=== PATIENT | female | born 1990 | race Caucasian/White ===

== ENCOUNTER 2017-01-17 20:39 | Emergency (ER) | payer SELFPAY ==
[~2017-01-17] VITALS: Ht 176.5 cm; Wt 74.0 kg
[2017-01-17 20:58] VITALS: BP 100/63; PULSE 97; RESP 16; TEMP 98.5; O2SAT 100
[2017-01-17] MEDS ORDERED: SODIUM CHLOR 0.9% 1000 ML INJ 1,000 ML IV SCH (21:36)
[2017-01-17] MEDS ORDERED: ONDANSETRON HCL 4 MG/2 ML VIAL IVP ONE (21:45)
[2017-01-17] MEDS ORDERED: SODIUM CHLORIDE 0.9% FLUSH 5 ML FLUSH IVF PRN (21:45)
[2017-01-17] MEDS ORDERED: PANTOPRAZOLE SODIUM 40 MG VIAL IVP ONE (21:45)
--- NOTE | 2017-01-17 21:48 | PD ---
HPI Chief Complaint: Abdominal Pain Time Seen by Provider: 21:36 Travel History International Travel<30 days: No Contact w/Intl Traveler<30days: No Traveled to known affect area: No History of Present Illness HPI 26-year-old female presents to the emergency department by private transportation for complaint of 2 weeks of epigastric pain that has now worsened to involve the entire abdomen as well as radiating into the back and flank area. Patient states she's had ongoing nausea and this evening had an episode of hematemesis times one. No coffee-ground emesis no bilious emesis no melena or hematochezia. Patient denies fever chills. Patient's had no chest pain or shortness of breath. No near-syncope or syncope. Patient states she's taken no medications for her pain and she does not take pain medication and is 6 years "clean" from substance use. Patient rates pain 10 over 10 in intensity. Patient denies dysuria frequency urgency or hematuria. Patient is unable to identify exacerbating or alleviating factors. PFSH Past Medical History Narrative Medical Asthma, CVA, substance use Ab1 tubal ligation alcohol use tobacco use marijuana use; nursing notes reviewed Asthma: Yes Cerebrovascular Accident: Yes Diminished Hearing: No Immunizations Current: Yes ?: Unknown LMP: 12/29/16 : 4 Para: 3 Miscarriage: 1 Tubal Ligation: Yes (2010) Social History Alcohol Use: Yes ("I ONLY DRINK ON OCCASION" STATED 06/08/16) Tobacco Use: Yes (11/18 PPD) Substance Use: Yes ("I SMOKE WEED SOMETIMES, I'VE BEEN CLEAN FROM HEROIN FOR 4.5 YEARS" STATED ) Allergies-Medications (Allergen,Severity, Reaction): Coded Allergies: Aspirin (Verified Allergy, Severe, Throat swelling, 01/17/17) Dimetapp (Verified Allergy, Severe, Swelling, 01/17/17) THROAT SWELLING Penicillin (Verified Allergy, Severe, Throat swelling, 01/17/17) Adhesives (Verified Allergy, Intermediate, Rash, 01/17/17) Latex (Verified Allergy, Intermediate, Itching, 01/17/17) Phenergan (Verified Adverse Reaction, Severe, Vomiting, 01/17/17) Terbutaline (Verified Adverse Reaction, Severe, Increased contractions, 01/17/17) Reported Meds & Prescriptions Reported Meds & Active Scripts Active No Active Prescriptions or Reported Medications Review of Systems Except as stated in HPI: all other systems reviewed are Neg Physical Exam Narrative GENERAL: Well-developed well-nourished female tearful female in no respiratory distress SKIN: Warm and dry. HEAD: Normocephalic. EYES: No scleral icterus. No injection or drainage. NECK: Supple, trachea midline. No JVD or lymphadenopathy. CARDIOVASCULAR: Regular rate and rhythm without murmurs, gallops, or rubs. RESPIRATORY: Breath sounds equal bilaterally. No accessory muscle use. GASTROINTESTINAL: Abdomen soft, diffusely tender, nondistended. MUSCULOSKELETAL: No cyanosis, or edema. BACK: Nontender without obvious deformity. Bilateral CVA tenderness. Data Data Last Documented VS Vital Signs Date Time Temp Pulse Resp B/P Pulse Ox O2 Delivery O2 Flow Rate FiO2 01/17/17 23:39 20 01/17/17 22:20 76 106/70 100 01/17/17 20:58 98.5 Orders Complete Blood Count With Diff (01/17/17 21:36) Comprehensive Metabolic Panel (01/17/17 21:36) Lipase (01/17/17 21:36) Urinalysis - C+S If Indicated (01/17/17 21:36) Ct Abd/Pel W Iv Contrast(Rout) (01/17/17 21:36) Iv Access Insert/Monitor (01/17/17 21:36) Ecg Monitoring (01/17/17 21:36) Oximetry (01/17/17 21:36) Ondansetron Inj (Zofran Inj) (01/17/17 21:45) Pantoprazole Inj (Protonix Inj) (01/17/17 21:45) Sodium Chlor 0.9% 1000 Ml Inj (Ns 1000 M (01/17/17 21:36) Sodium Chloride 0.9% Flush (Ns Flush) (01/17/17 21:45) Ed Urine Pregnancytest Poc (01/17/17 21:36) Urine Culture (01/17/17 22:08) Iohexol 350 Inj (Omnipaque 350 Inj) (01/17/17 23:45) Labs Laboratory Tests Test 01/17/17 01/17/17 22:08 22:20 Urine Collection Type VOIDED Urine Color YELLOW Urine Turbidity CLOUDY Urine pH 5.5 Urine Specific [place] 1.025 Urine Protein 30 mg/dL Urine Glucose (UA) NEG mg/dL Urine Ketones NEG mg/dL Urine Occult Blood SMALL Urine Nitrite POS Urine Bilirubin NEG Urine Leukocyte Esterase SMALL Urine WBC INNUM /hpf Urine WBC Clumps FEW Urine Squamous Epithelial >8 /hpf Cells Urine Bacteria MANY /hpf Microscopic Urinalysis Comment CULTURE INDICATED White Blood Count 8.6 TH/MM3 Red Blood Count 4.16 MIL/MM3 Hemoglobin 13.6 GM/DL Hematocrit 38.7 % Mean Corpuscular Volume 93.1 FL Mean Corpuscular Hemoglobin 32.6 PG Mean Corpuscular Hemoglobin 35.0 % Concent Red Cell Distribution Width 12.1 % Platelet Count 180 TH/MM3 Mean Platelet Volume 8.4 FL Neutrophils (%) (Auto) 65.9 % Lymphocytes (%) (Auto) 25.4 % Monocytes (%) (Auto) 4.6 % Eosinophils (%) (Auto) 0.4 % Basophils (%) (Auto) 3.7 % Neutrophils # (Auto) 5.7 TH/MM3 Lymphocytes # (Auto) 2.2 TH/MM3 Monocytes # (Auto) 0.4 TH/MM3 Eosinophils # (Auto) 0.0 TH/MM3 Basophils # (Auto) 0.3 TH/MM3 CBC Comment DIFF FINAL Differential Comment Sodium Level 139 MEQ/L Potassium Level 3.9 MEQ/L Chloride Level 106 MEQ/L Carbon Dioxide Level 25.5 MEQ/L Anion Gap 8 MEQ/L Blood Urea Nitrogen 13 MG/DL Creatinine 0.69 MG/DL Estimat Glomerular Filtration 102 ML/MIN Rate Random Glucose 85 MG/DL Calcium Level 8.6 MG/DL Total Bilirubin 0.4 MG/DL Aspartate Amino Transf 11 U/L (AST/SGOT) Alanine Aminotransferase 17 U/L (ALT/SGPT) Alkaline Phosphatase 52 U/L Total Protein 7.6 GM/DL Albumin 4.1 GM/DL Lipase 214 U/L [facility] Medical Decision Making Medical Screen Exam Complete: Yes Emergency Medical Condition: Yes Medical Record Reviewed: Yes Interpretation(s) CT A/P : CONCLUSION: Small volume of free pelvic fluid. Otherwise benign unremarkable CT appearance of the abdomen and pelvis. Perry Jackson MD on January 18, 2017 at 0:12 Board Certified Radiologist. This report was verified electronically. CBC & BMP Diagram 01/17/17 22:20 Vital Signs Date Time Temp Pulse Resp B/P Pulse Ox O2 Delivery O2 Flow Rate FiO2 01/17/17 23:39 20 01/17/17 22:20 76 20 106/70 100 01/17/17 20:58 98.5 97 16 100/63 100 Urinalysis positive nitrites WBCs bacteria Differential Diagnosis Abdominal pain, gastritis, peptic ulcer disease, esophagitis, biliary colic, pancreatitis, appendicitis, ectopic , pyelonephritis, UTI Narrative Course Patient presents with flank pain lower abdominal pain and now generalized abdominal pain with nausea vomiting and unable take pain medications because she is fearful of taking anything for pain. No fever or chills. She had one episode of vomiting today with streaks of blood. Patient is been taking any nonsteroidal anti-inflammatory medications. No prior history of peptic ulcer disease. Urinalysis is markedly abnormal consistent with urinary tract infection CT abdomen and pelvis performed and no acute intra-abdominal or pelvic retroperitoneal findings identified. No evidence for pyelonephritis or appendicitis. Patient given first dose of antibiotic in the emergency department along with Pyridium and IV fluid bolus. Patient stable for outpatient management. Diagnosis Primary Impression: UTI (urinary tract infection) Qualified Code: N30.00 - Acute cystitis without hematuria Additional Impression: Gastritis Qualified Code: K29.00 - Acute gastritis, presence of bleeding unspecified, unspecified gastritis type Referrals: Primary Care Physician call for appointment Patient Instructions: General Instructions Additional Instructions: Increase fluid hydration Follow-up with primary care provider Complete course of antibiotic Take Pyridium as prescribed as needed for pain Use Zantac 150 twice daily for 14 days Take acetaminophen/Tylenol as tolerated for fever 100.4F or greater or for minor pain Med/Other Pt SpecificInfo: Prescription(s) given Scripts Phenazopyridine (Pyridium)100 Mg [id number] Mg PO Q8H PRN (DYSURIA) #6 TAB Ref 0 Prov:Natalie Hughes MD 01/18/17 Ciprofloxacin (Cipro)500 Mg [id number] Mg PO BID 10 Days Ref 0 Prov:Natalie Hughes MD 01/18/17 Disposition: 01 DISCHARGE HOME Condition: Stable Natalie Hughes MD Jan 17, 2017 21:48
[2017-01-17 22:17] LABS: BLOOD, URINE SMALL (NEG); GLUCOSE,URINE NEG (NEG); KETONE, URINE NEG (NEG); PH, URINE 5.5 (5.0-8.5)
[2017-01-17 22:19] LABS: NITRITE,URINE POS (NEG)
[2017-01-17 22:20] VITALS: BP 106/70; PULSE 76; RESP 20; O2SAT 100
[2017-01-17 22:25] LABS: METHOD OF COLLECTION VOIDED; URINE COLOR YELLOW (YELLW/STRAW)
[2017-01-17 22:26] LABS: AUTOMATED NEUTROPHIL # 5.7 TH/MM3 (1.8-7.7); BASOPHIL # 0.3 TH/MM3 (0-0.2); BASOPHIL % 3.7 % (0.0-2.0); EOSINOPHIL % 0.4 % (0.0-4.0); HEMATOCRIT 38.7 % (35.0-46.0); HEMO FLAGS DIFF FINAL; LYMPH % 25.4 % (9.0-44.0); LYMPHOCYTE # 2.2 TH/MM3 (1.0-4.8); MEAN CELL VOLUME 93.1 FL (80.0-100.0); MEAN CORPUSCULAR HEMOGLOBIN 32.6 PG (27.0-34.0); MONO % 4.6 % (0.0-8.0); NEUT % 65.9 % (16.0-70.0); PLATELET COUNT 180 TH/MM3 (150-450); RED BLOOD COUNT 4.16 MIL/MM3 (4.00-5.30); RED CELL DISTRIBUTION WIDTH 12.1 % (11.6-17.2); WHITE BLOOD COUNT 8.6 TH/MM3 (4.0-11.0)
[2017-01-17 22:27] LABS: BACTERIA, URINE MANY /hpf; COMMENT (UR) CULTURE INDICATED; CULTURE IF INDICATED CULTURE INDICATED; SQUAMOUS EPITHELIAL CELL URINE >8 /hpf (0-5); WBC, URINE INNUM /hpf (0-5)
[2017-01-17 22:35] LABS: CHLORIDE 106 MEQ/L (98-107); POTASSIUM 3.9 MEQ/L (3.5-5.1); SODIUM (NA) 139 MEQ/L (136-145)
[2017-01-17 22:39] LABS: ANION GAP 8 MEQ/L (5-15); BICARBONATE 25.5 MEQ/L (21.0-32.0); BLOOD UREA NITROGEN 13 MG/DL (7-18)
[2017-01-17 22:42] LABS: ALT (GPT) 17 U/L (10-53); AST (GOT) 11 U/L (15-37); GLOMERULAR FILTRATION RATE 102 ML/MIN (>89)
[2017-01-17 22:43] LABS: TOTAL BILIRUBIN ADULT 0.4 MG/DL (0.2-1.0)
[2017-01-17 22:45] LABS: ALKALINE PHOSPHATASE 52 U/L (45-117)
[2017-01-17] MEDS ORDERED: IOHEXOL 350 MG/ML 10 ML VIAL (for RAD DIAG) IV ONE (23:45)
[2017-01-18] VITALS: BP 116/67
--- NOTE | 2017-01-18 00:16 | RADHPO ---
EXAM DATE/TIME: 01/17/2017 23:45 [facility] COMPARISON: No previous studies available for comparison. INDICATIONS : Epigastric pain for two weeks. IV CONTRAST: 70 cc Omnipaque 350 (iohexol) IV ORAL CONTRAST: No oral contrast ingested. RADIATION DOSE: 10.32 CTDIvol (mGy) MEDICAL HISTORY : None SURGICAL HISTORY : Tubal ligation. ENCOUNTER: Initial ACUITY: 2 weeks PAIN SCALE: 7/10 LOCATION: Abdomen. TECHNIQUE: Volumetric scanning of the abdomen and pelvis was performed. Using automated exposure control and ad justment of the mA and/or kV according to patient size, radiation dose was kept as low as reasonably achievable to obtain optimal diagnostic quality images. FINDINGS: LOWER LUNGS: The visualized lower lungs are clear. LIVER: Homogeneous density without lesion. There is no dilation of the biliary tree. No calcified gallston es. SPLEEN: Normal size without lesion. PANCREAS: Within normal limits. KIDNEYS: Normal in size and shape. There is no mass, stone or hydronephrosis. ADRENAL GLANDS: Within normal limits. VASCULAR: There is no aortic aneurysm. BOWEL/MESENTERY: The stomach, small bowel, and colon demonstrate no acute abnormality. There is no free intraperitone al air or fluid. ABDOMINAL WALL: Within normal limits. RETROPERITONEUM: There is no lymphadenopathy. BLADDER: No wall thickening or mass. REPRODUCTIVE: Small volume of probable physiologic free pelvic fluid. INGUINAL: There is no lymphadenopathy or hernia. MUSCULOSKELETAL: Within normal limits for patient age. CONCLUSION: Small volume of free pelvic fluid. Otherwise benign unremarkable CT appearance of the abdomen and pel vis. Perry Jackson MD on January 18, 2017 at 0:12 Board Certified Radiologist. This report was verified electronically.
[2017-01-18] MEDS ORDERED: CIPR-9 PO (00:26)
[2017-01-18] MEDS ORDERED: PHEN0.4T PO (00:27)
[2017-01-18] MEDS ORDERED: PHENAZOPYRIDINE HCL 100 MG TAB PO ONE (00:30)
[2017-01-18] MEDS ORDERED: LEVOFLOXACIN 500 MG TAB PO ONE (00:30)
== END 2017-01-18 00:46 | disposition home or self-care (01) ==
LOC: PHED 20:39
DX: N30.00 Acute cystitis without hematuria (principal); K29.00 Acute gastritis without bleeding; B96.20 Unspecified Escherichia coli [E. coli] as the cause of diseases classified elsewhere; K92.0 Hematemesis; M54.9 Dorsalgia, unspecified; F17.200 Nicotine dependence, unspecified, uncomplicated; Z87.09 Personal history of other diseases of the respiratory system; Z86.73 Personal history of transient ischemic attack (TIA), and cerebral infarction without residual deficits
CPT/HCPCS: 74177; 80053; 81001; 83690; 84703; 85025; 87077; 87086; 87186; 96374; 96375; 99284; C9113; J2405; J7030; Q9967

== ENCOUNTER 2017-04-14 11:25 | Emergency (ER) | payer SELFPAY ==
[~2017-04-14] VITALS: Ht 175.3 cm; Wt 74.3 kg
[~2017-04-14 11:25] MED LIST: CIPR-9 PO; PHEN0.4T PO
[2017-04-14 11:32] VITALS: BP 102/68; PULSE 87; RESP 15; TEMP 98; O2SAT 99
[2017-04-14] MEDS ORDERED: AMOX500T PO (12:16)
[2017-04-14] MEDS ORDERED: IBUP800T23 PO (12:16)
--- NOTE | 2017-04-14 12:17 | PD ---
HPI Chief Complaint: Oral / Dental Pain or Problem Time Seen by Provider: 11:50 Travel History International Travel<30 days: No Contact w/Intl Traveler<30days: No Traveled to known affect area: No History of Present Illness HPI 26-year-old female with no significant past medical history sensory emergency department for evaluation of right lower jaw/dental pain. She reports 4 days ago she was biting down onto something hard breaking her right back molar. Since then she's had some gum swelling around the tooth and increased pain. Patient denies fever, chills, difficulty opening the mouth or swallowing. PFSH Past Medical History Asthma: Yes Cerebrovascular Accident: Yes Diminished Hearing: No Immunizations Current: Yes Influenza Vaccination: No ?: Not : 4 Para: 3 Miscarriage: 1 Tubal Ligation: Yes (2010) Social History Alcohol Use: Yes (twice a month) Tobacco Use: Yes (11/18 PPD) Substance Use: Yes (PREVIOUS HEROIN ADDICTION) Allergies-Medications (Allergen,Severity, Reaction): Coded Allergies: Aspirin (Verified Allergy, Severe, Throat swelling, 04/14/17) Dimetapp (Verified Allergy, Severe, Swelling, 04/14/17) THROAT SWELLING Penicillin (Verified Allergy, Severe, Throat swelling, 04/14/17) Adhesives (Verified Allergy, Intermediate, Rash, 04/14/17) Latex (Verified Allergy, Intermediate, Itching, 04/14/17) Phenergan (Verified Adverse Reaction, Severe, Vomiting, 04/14/17) Terbutaline (Verified Adverse Reaction, Severe, Increased contractions, ) Reported Meds & Prescriptions Reported Meds & Active Scripts Active No Active Prescriptions or Reported Medications Review of Systems Except as stated in HPI: all other systems reviewed are Neg Physical Exam Narrative GENERAL: Well-nourished, well-developed patient. SKIN: Focused skin assessment warm/dry. HEAD: Normocephalic. EYES: No scleral icterus. No injection or drainage. MOUTH: Dental decay and tooth fracture of tooth #30 with surrounding gum erythema. No swelling of the floor of mouth. NECK: Supple, trachea midline. No JVD or lymphadenopathy. CARDIOVASCULAR: Regular rate and rhythm without murmurs, gallops, or rubs. RESPIRATORY: Breath sounds equal bilaterally. No accessory muscle use. GASTROINTESTINAL: Abdomen soft, non-tender, nondistended. MUSCULOSKELETAL: No cyanosis, or edema. Data Data Last Documented VS Vital Signs Date Time Temp Pulse Resp B/P Pulse Ox O2 Delivery O2 Flow Rate FiO2 04/14/17 11:32 98.0 87 15 102/68 99 MDM Medical Decision Making Medical Screen Exam Complete: Yes Emergency Medical Condition: Yes Medical Record Reviewed: Yes Differential Diagnosis Dental fracture, dental caries, dental abscess Narrative Course 26-year-old female presents emergency department for right lower dental pain after sustaining a tooth fracture 4 days ago. She reports since then she's had increased pain and some gum swelling around the tooth. She denies fevers, chills, difficulty swallowing. On exam patient has widespread dental caries tooth #30 is cracked and decayed with surrounding gum erythema patient will be placed on amoxicillin. Instructed to follow-up with dentist. Patient reports allergy to penicillin but states she can take amoxicillin several times in the past without any previous reaction. Diagnosis Primary Impression: Dental infection Referrals: Dentist Scripts Amoxicillin 500 Mg [id number] Mg PO TID #21 TAB Ref 0 Prov:Crystal Reyes 04/14/17 Ibuprofen 800 Mg [id number] Mg PO TID #21 TAB Ref 0 Prov:Crystal Reyes 04/14/17 Disposition: 01 DISCHARGE HOME Condition: Stable Crystal Reyes April 14, 2017 12:17
[2017-04-15] MEDS ORDERED: CLIN1CAP6 PO (15:00)
== END 2017-04-14 12:29 | disposition home or self-care (01) ==
LOC: PHEFT 11:25
DX: K04.7 Periapical abscess without sinus (principal); K02.9 Dental caries, unspecified; J45.909 Unspecified asthma, uncomplicated; F17.200 Nicotine dependence, unspecified, uncomplicated; Z86.73 Personal history of transient ischemic attack (TIA), and cerebral infarction without residual deficits; Z88.6 Allergy status to analgesic agent; Z88.0 Allergy status to penicillin; Z88.8 Allergy status to other drugs, medicaments and biological substances
CPT/HCPCS: 99283

== ENCOUNTER 2017-04-15 14:15 | Emergency (ER) | payer SELFPAY ==
[~2017-04-15] VITALS: Ht 175.3 cm; Wt 73.0 kg
[~2017-04-15 14:15] MED LIST changes: +AMOX500T PO; -CIPR-9 PO; +IBUP800T23 PO; -PHEN0.4T PO
[2017-04-15 14:22] VITALS: BP 108/71; PULSE 98; RESP 16; TEMP 98.7; O2SAT 100
--- NOTE | 2017-04-15 14:54 | PD ---
HPI Chief Complaint: Oral / Dental Pain or Problem Time Seen by Provider: 14:42 Travel History International Travel<30 days: No Contact w/Intl Traveler<30days: No Traveled to known affect area: No History of Present Illness HPI 26-year-old female presents emergency department for right lower dental pain and swelling. Patient was seen and evaluated in the emergency department by myself yesterday at at that visit she was diagnosed with a minor dental infection caused by a cracked tooth. Patient was put on amoxicillin and Motrin for pain. She presents today reporting that the pain and swelling are worse. She reports subjective fever. She denies difficulty swallowing, nausea, vomiting. PFSH Past Medical History Asthma: Yes Cerebrovascular Accident: Yes Diminished Hearing: No Immunizations Current: Yes ?: Not LMP: 04/14/2017 : 4 Para: 3 Miscarriage: 1 Tubal Ligation: Yes (2010) Social History Alcohol Use: Yes (twice a month) Tobacco Use: Yes (11/18 PPD) Substance Use: Yes (PREVIOUS HEROIN ADDICTION) Allergies-Medications (Allergen,Severity, Reaction): Coded Allergies: Aspirin (Verified Allergy, Severe, ONLY RUDY ASPRIN, 04/15/17) Dimetapp (Verified Allergy, Severe, Swelling, 04/15/17) THROAT SWELLING Penicillin (Verified Allergy, Severe, PT DENIES ALLERGY, 04/15/17) Adhesives (Verified Allergy, Intermediate, Rash, 04/15/17) Latex (Verified Allergy, Intermediate, Itching, 04/15/17) Phenergan (Verified Adverse Reaction, Severe, Vomiting, 04/15/17) Terbutaline (Verified Adverse Reaction, Severe, Increased contractions, ) Reported Meds & Prescriptions Reported Meds & Active Scripts Active Amoxicillin 500 Mg Tab 500 Mg PO TID Ibuprofen 800 Mg Tab 800 Mg PO TID Review of Systems Except as stated in HPI: all other systems reviewed are Neg Physical Exam Narrative GENERAL: Well-nourished, well-developed patient. Crying. SKIN: Focused skin assessment warm/dry. HEAD: Normocephalic. Right lower facial swelling. EYES: No scleral icterus. No injection or drainage. MOUTH: Decayed and cracked tooth #30 with surrounding gum erythema. No fluid collection or abscess present. No oropharynx swelling. No trismus. No swelling of the floor of mouth. NECK: Supple, trachea midline. No JVD or lymphadenopathy. CARDIOVASCULAR: Regular rate and rhythm without murmurs, gallops, or rubs. RESPIRATORY: Breath sounds equal bilaterally. No accessory muscle use. MUSCULOSKELETAL: No cyanosis, or edema. Data Data Last Documented VS Vital Signs Date Time Temp Pulse Resp B/P Pulse Ox O2 Delivery O2 Flow Rate FiO2 04/15/17 14:22 98.7 98 16 108/71 100 MDM Medical Decision Making Medical Screen Exam Complete: Yes Emergency Medical Condition: Yes Differential Diagnosis Dental abscess, dental caries, periodontal disease. Narrative Course 26-year-old female presents emergency department for right lower dental pain she was seen in the emergency department yesterday for the same complaint and put on amoxicillin and Motrin for the pain. She reports the pain and swelling have worsened today and return for evaluation. The swelling on the right side of the face has slightly increased. There is no identifiable abscess lancing in the ER. Patient will be given a shot of Toradol and antibiotics changed to clindamycin. She is instructed follow-up with the dentist. Diagnosis Primary Impression: Dental abscess Additional Instructions: Stop taking the amoxicillin. Start clindamycin. Make an appointment for follow -up with dentist. Scripts Clindamycin 300 Mg [id number] Mg PO Q6H #40 CAP Ref 0 Prov:Crystal Reyes 04/15/17 Disposition: 01 DISCHARGE HOME Condition: Stable Crystal Reyes April 15, 2017 14:54
[2017-04-15] MEDS ORDERED: CLIN1CAP6 PO (15:00)
[2017-04-15] MEDS ORDERED: KETOROLAC TROMETHAMINE 60 MG/2 ML (IM) VIAL IM ONE (15:15)
== END 2017-04-15 15:19 | disposition home or self-care (01) ==
LOC: PHEFT 14:15
DX: K04.7 Periapical abscess without sinus (principal); R50.9 Fever, unspecified; J45.909 Unspecified asthma, uncomplicated; F17.200 Nicotine dependence, unspecified, uncomplicated; Z88.0 Allergy status to penicillin; Z88.6 Allergy status to analgesic agent; Z88.8 Allergy status to other drugs, medicaments and biological substances; Z86.73 Personal history of transient ischemic attack (TIA), and cerebral infarction without residual deficits
CPT/HCPCS: 96372; 99283; J1885

== ENCOUNTER 2017-06-24 16:10 | Emergency (ER) | payer SELFPAY ==
[~2017-06-24] VITALS: Ht 175.3 cm; Wt 72.7 kg
[~2017-06-24 16:10] MED LIST changes: +CLIN1CAP6 PO
[2017-06-24 16:22] VITALS: BP 108/65; PULSE 82; RESP 16; TEMP 99; O2SAT 100
[2017-06-24] MEDS ORDERED: SODIUM CHLOR 0.9% 1000 ML INJ 1,000 ML IV ONE (18:31)
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
[2017-06-24] MEDS ORDERED: SODIUM CHLORIDE 0.9% FLUSH 10 ML FLUSH IVF PRN (18:45)
[2017-06-24] MEDS ORDERED: diphenhydrAMINE HCL 50 MG/ML VIAL IVP ONE (18:45)
[2017-06-24] MEDS ORDERED: METOCLOPRAMIDE HCL 10 MG/2 ML VIAL IVP ONE (18:45)
--- NOTE | 2017-07-07 19:59 | PD ---
Physical Exam Time Seen by Provider: 19:59 Narrative The patient left AMA before I could see her. I did not actually see this patient. The patient left shortly after Dr. Morrissey signed out. The patient was stable and alert and oriented. Data Data Orders Orders Ecg Monitoring (06/24/17 18:31) Iv Access Insert/Monitor (06/24/17 18:31) Oximetry (06/24/17 18:31) Sodium Chloride 0.9% Flush (Ns Flush) (06/24/17 18:45) Diphenhydramine Inj (Benadryl Inj) (06/24/17 18:45) Metoclopramide Inj (Reglan Inj) (06/24/17 18:45) Sodium Chlor 0.9% 1000 Ml Inj (Ns 1000 M (06/24/17 18:31) Ed Urine Pregnancytest Poc (06/24/17 18:31) MDM Diagnosis Primary Impression: Headache Patient Instructions: General Instructions Departure Forms: Tests/Procedures Scripts No Active Prescriptions or Reported Meds Disposition: 07 AGAINST MEDICAL ADVICE Condition: Stable Reji Jade MD Jul 07, 2017 19:59
== END 2017-06-24 19:15 | disposition left against medical advice (07) ==
LOC: PHED 16:10
DX: R51 Headache (principal); R11.2 Nausea with vomiting, unspecified; J45.909 Unspecified asthma, uncomplicated; Z86.73 Personal history of transient ischemic attack (TIA), and cerebral infarction without residual deficits; F17.210 Nicotine dependence, cigarettes, uncomplicated
CPT/HCPCS: 99281

== ENCOUNTER 2017-07-09 13:45 | Emergency (ER) | payer SELFPAY ==
[~2017-07-09] VITALS: Ht 175.3 cm; Wt 71.6 kg
[2017-07-09 13:55] VITALS: BP 100/60; PULSE 100; RESP 16; TEMP 99; O2SAT 98
[2017-07-09 14:35] VITALS: BP 100/60; PULSE 100; RESP 16; TEMP 99; O2SAT 98
[2017-07-09 14:57] LABS: BLOOD, URINE SMALL (NEG); GLUCOSE,URINE NEG (NEG); KETONE, URINE NEG (NEG); NITRITE,URINE NEG (NEG); PH, URINE 5.5 (5.0-8.5)
[2017-07-09 15:00] LABS: METHOD OF COLLECTION CLEAN CATCH; URINE COLOR YELLOW (YELLW/STRAW)
[2017-07-09 15:01] LABS: COMMENT (UR) CULT NOT INDICATED; CULTURE IF INDICATED CULT NOT INDICATED; MUCUS URINE FEW /lpf (OCC); RBC, URINE 0-3 /hpf (0-3); SQUAMOUS EPITHELIAL CELL URINE > 8 /hpf (0-5); WBC, URINE 0-2 /hpf (0-5)
--- NOTE | 2017-07-09 15:14 | PD ---
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 Generalized abdominal pain has been present today. It's most noticeable in left upper quadrant. 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 She has had no fever. She reports an [id number] ear test was faintly positive. She also reports left upper gingival swelling which she believes might be an abscess. [facility] Past Medical History Anemia: Yes Asthma: Yes Cerebrovascular Accident: Yes Diminished Hearing: No Gastrointestinal Disorders: Yes (GASTRITIS) GERD: Yes Immunizations Current: Yes Influenza Vaccination: No ?: Unknown LMP: 06/26/17 : 4 Para: 3 Miscarriage: 1 Tubal Ligation: Yes (2010) Past Surgical History Surgical History: No Previous Surgery Social History Alcohol Use: Yes Tobacco Use: Yes (11/18 PPD) Substance Use: Yes (PREVIOUS HEROIN ADDICTION) Allergies-Medications (Allergen,Severity, Reaction): Coded Allergies: aspirin (Unverified Allergy, Severe, ONLY RUDY ASPRIN, 07/09/17) brompheniramine (Unverified Allergy, Severe, Swelling, 07/09/17) THROAT SWELLING penicillin G (Unverified Allergy, Severe, PT DENIES ALLERGY, 07/09/17) phenylpropanolamine (Unverified Allergy, Severe, Swelling, 07/09/17) THROAT SWELLING adhesive (Unverified Allergy, Intermediate, Rash, 07/09/17) latex (Unverified Allergy, Intermediate, Itching, 07/09/17) promethazine (Unverified Adverse Reaction, Severe, Vomiting, 07/09/17) terbutaline (Unverified Adverse Reaction, Severe, Increased contractions, 07/09/17) Reported Meds & Prescriptions Reported Meds & Active Scripts Active No Active Prescriptions or Reported Medications Review of Systems Except as stated in HPI: all other systems reviewed are Neg Physical Exam Narrative GENERAL: 26-year-old female pleasant well-nourished well-developed acute distress SKIN: Warm and dry. HEAD: Atraumatic. Normocephalic. EYES: Pupils equal and round. No scleral icterus. No injection or drainage. ENT: No nasal bleeding or discharge. Mucous membranes pink and moist. NECK: Trachea midline. No JVD. CARDIOVASCULAR: Regular rate and rhythm. RESPIRATORY: No accessory muscle use. Clear to auscultation. Breath sounds equal bilaterally. GASTROINTESTINAL: Abdomen soft, non-tender, nondistended. Hepatic and splenic margins not palpable. MUSCULOSKELETAL: Extremities without clubbing, cyanosis, or edema. No obvious deformities. NEUROLOGICAL: Awake and alert. No obvious cranial nerve deficits. Motor grossly within normal limits. Five out of 5 muscle strength in the arms and legs. Normal speech. PSYCHIATRIC: Appropriate mood and affect; insight and judgment normal. Data Data Last Documented VS Vital Signs Date Time Temp Pulse Resp B/P (MAP) Pulse Ox O2 Delivery O2 Flow Rate FiO2 07/09/17 15:36 07/09/17 14:35 99.0 100 16 98 Orders Orders Beta Hcg (Quant/Titer) (07/09/17 14:24) Complete Rh (07/09/17 14:24) Urinalysis - C+S If Indicated (07/09/17 14:24) Ed Urine Pregnancytest Poc (07/09/17 14:24) Labs Laboratory Tests Test 07/09/17 14:51 Urine Collection Type CLEAN CATCH Urine Color YELLOW Urine Turbidity CLEAR Urine pH 5.5 Urine Specific [place] 1.020 Urine Protein NEG mg/dL Urine Glucose (UA) NEG mg/dL Urine Ketones NEG mg/dL Urine Occult Blood SMALL Urine Nitrite NEG Urine Bilirubin NEG Urine Leukocyte Esterase NEG Urine RBC 0-3 /hpf Urine WBC 0-2 /hpf Urine Squamous Epithelial Cells > 8 /hpf Urine Mucus FEW /lpf Microscopic Urinalysis Comment CULT NOT INDICATED Urine Collection Time 14:51 Human Chorionic Gonadotropin, Quant LESS THAN 1 MIU/ML [facility] Medical Decision Making Medical Screen Exam Complete: Yes Emergency Medical Condition: Yes Medical Record Reviewed: Yes Differential Diagnosis IUP, UTI, ectopic , ov torsion, appendicitis, TOA, cervicitis, BV, Trichomoniasis, ov cyst, hernia, mittelschmerz, pain from menstruation Narrative Course Point of care : No Beta hCG less than 1 Patient is suitable for discharge. Follow-up with dentist discussed. The lesion is not appear to be an abscess or infectious process. We talked about neoplastic lesions in the patient verbalized understanding. Diagnosis Primary Impression: Vaginal bleeding Additional Impression: Gum lesion Referrals: Dentist 2 days Additional Instructions: You have a choice when it comes to health care, and we are glad that you chose [facility]. Hopefully, we have met your expectations on today's visit. You are welcome to return to [facility] at any time, as we are committed to meeting the health care needs of our community. Med/Other Pt SpecificInfo: No Change to Meds Scripts No Active Prescriptions or Reported Meds Disposition: 01 DISCHARGE HOME Condition: Loki Fernandez MD Jul 09, 2017 15:14
[2017-07-09 15:17] LABS: BETA HCG QUANT LESS THAN 1 MIU/ML (0-5)
== END 2017-07-09 15:37 | disposition home or self-care (01) ==
LOC: PHED 13:45
DX: N93.9 Abnormal uterine and vaginal bleeding, unspecified (principal); K13.70 Unspecified lesions of oral mucosa; Z86.73 Personal history of transient ischemic attack (TIA), and cerebral infarction without residual deficits; J45.909 Unspecified asthma, uncomplicated; K21.9 Gastro-esophageal reflux disease without esophagitis; Z88.0 Allergy status to penicillin; F17.210 Nicotine dependence, cigarettes, uncomplicated; Z87.19 Personal history of other diseases of the digestive system
CPT/HCPCS: 81001; 84702; 84703; 86901; 99283

== ENCOUNTER 2017-08-30 14:52 | Emergency (ER) | payer SELFPAY ==
[~2017-08-30] VITALS: Ht 175.3 cm; Wt 72.1 kg
[2017-08-30 15:08] VITALS: BP 100/51; PULSE 75; RESP 18; TEMP 99; O2SAT 99
[2017-08-30] MEDS ORDERED: SODIUM CHLORIDE 0.9% FLUSH 10 ML FLUSH IVF PRN (16:30)
[2017-08-30] MEDS ORDERED: cefTRIAXone INJ 2,000 MG in SODIUM CHLORIDE 0.9% INJ 100 ML IV ONE (16:30)
[2017-08-30] MEDS ORDERED: AZITHROMYCIN INJ 500 MG in SODIUM CHLOR 0.9% 250 ML INJ 250 ML IV ONE (16:30)
--- NOTE | 2017-08-30 16:37 | PD ---
HPI . Chest cold Chief Complaint: Cold / Flu Symptoms Time Seen by Provider: 16:11 Travel History International Travel<30 days: No Contact w/Intl Traveler<30days: No Traveled to known affect area: No History of Present Illness HPI Patient presents with a chief complaint of a chest cold. She states that her symptoms all started a couple weeks ago with fevers and chills associated with nausea and vomiting. Most of those sorts of symptoms have subsided but she now has a persistent cough which is productive of purulent sputum. She states that she is coughing so much that her chest and back are sore. She continues to run occasional fevers. She feels short of breath. No noted modifying factors. She rates the pain in her chest 06/26. [facility] Past Medical History Anemia: Yes Asthma: Yes Cerebrovascular Accident: Yes Diminished Hearing: No Gastrointestinal Disorders: Yes (GASTRITIS) GERD: Yes Immunizations Current: Yes Tetanus Vaccination: < 5 Years Influenza Vaccination: Yes ?: Not LMP: 08/24/17 : 4 Para: 3 Miscarriage: 1 Tubal Ligation: Yes (2010) Social History Alcohol Use: Yes Tobacco Use: Yes (11/18 PPD) Substance Use: Yes (PREVIOUS HEROIN ADDICTION) Allergies-Medications (Allergen,Severity, Reaction): Coded Allergies: aspirin (Unverified Allergy, Severe, ONLY RUDY ASPRIN, 08/30/17) brompheniramine (Unverified Allergy, Severe, Swelling, 08/30/17) THROAT SWELLING penicillin G (Unverified Allergy, Severe, PT DENIES ALLERGY, 08/30/17) phenylpropanolamine (Unverified Allergy, Severe, Swelling, 08/30/17) THROAT SWELLING adhesive (Unverified Allergy, Intermediate, Rash, 08/30/17) latex (Unverified Allergy, Intermediate, Itching, 08/30/17) promethazine (Unverified Adverse Reaction, Severe, Vomiting, 08/30/17) terbutaline (Unverified Adverse Reaction, Severe, Increased contractions, 08/30/17) Reported Meds & Prescriptions Reported Meds & Active Scripts Active No Active Prescriptions or Reported Medications Review of Systems Except as stated in HPI: all other systems reviewed are Neg General / Constitutional: Positive: Fever, Chills HENT: No: Sore Throat, Congestion Cardiovascular: Positive: Chest Pain or Discomfort Respiratory: Positive: Cough, Shortness of Breath Gastrointestinal: No: Nausea, Vomiting, Diarrhea Genitourinary: No: Urgency, Frequency, Dysuria Physical Exam Narrative GENERAL: The patient is awake and alert and does not appear to be in any acute distress. SKIN: warm/dry. No rash. HEAD: Normocephalic. Atraumatic. EYES: Pupils equal and round. No scleral icterus. No injection or drainage. ENT: No nasal bleeding or discharge. Mucous membranes pink and moist. NECK: Trachea midline. Full range of motion without pain.. CARDIOVASCULAR: Regular rate and rhythm. Heart sounds are normal. RESPIRATORY: No accessory muscle use. I am not hearing breath sounds on the left. The right sounds clear. GASTROINTESTINAL: Abdomen soft. Nontender. Bowel sounds present. Nondistended. MUSCULOSKELETAL: No obvious deformities. NEUROLOGICAL: Awake and alert. No obvious cranial nerve deficits. Motor grossly within normal limits. Normal speech. PSYCHIATRIC: Appropriate mood and affect; insight and judgment normal. Data Data Last Documented VS Vital Signs Date Time Temp Pulse Resp B/P (MAP) Pulse Ox O2 Delivery O2 Flow Rate FiO2 08/30/17 17:49 72 16 93/58 (70) 97 Room Air 08/30/17 15:08 99.0 Orders Orders Basic Metabolic Panel (Bmp) (08/30/17 16:30) Complete Blood Count With Diff (08/30/17 16:30) Lactic Acid Sepsis Protocol (08/30/17 16:30) Blood Culture (08/30/17 16:30) Chest, Single Ap (08/30/17 16:30) Iv Access Insert/Monitor (08/30/17 16:30) Sodium Chloride 0.9% Flush (Ns Flush) (08/30/17 16:30) Ceftriaxone Inj (Rocephin Inj) (08/30/17 16:30) Azithromycin Inj (Zithromax Inj) (08/30/17 16:30) Labs Laboratory Tests Test 08/30/17 17:00 White Blood Count 5.6 TH/MM3 Red Blood Count 4.11 MIL/MM3 Hemoglobin 13.3 GM/DL Hematocrit 38.7 % Mean Corpuscular Volume 94.0 FL Mean Corpuscular Hemoglobin 32.3 PG Mean Corpuscular Hemoglobin Concent 34.4 % Red Cell Distribution Width 12.2 % Platelet Count 205 TH/MM3 Mean Platelet Volume 8.1 FL Neutrophils (%) (Auto) 52.7 % Lymphocytes (%) (Auto) 39.4 % Monocytes (%) (Auto) 6.3 % Eosinophils (%) (Auto) 1.5 % Basophils (%) (Auto) 0.1 % Neutrophils # (Auto) 2.9 TH/MM3 Lymphocytes # (Auto) 2.2 TH/MM3 Monocytes # (Auto) 0.4 TH/MM3 Eosinophils # (Auto) 0.1 TH/MM3 Basophils # (Auto) 0.0 TH/MM3 CBC Comment DIFF FINAL Differential Comment Blood Urea Nitrogen 13 MG/DL Creatinine 0.67 MG/DL Random Glucose 80 MG/DL Calcium Level 8.7 MG/DL Sodium Level 139 MEQ/L Potassium Level 3.6 MEQ/L Chloride Level 104 MEQ/L Carbon Dioxide Level 29.4 MEQ/L Anion Gap 6 MEQ/L Estimat Glomerular Filtration Rate 105 ML/MIN Lactic Acid Level 0.7 mmol/L MDM Medical Decision Making Medical Screen Exam Complete: Yes Emergency Medical Condition: Yes Differential Diagnosis Differential diagnosis includes but is not limited to viral respiratory illness , bronchitis, pneumonia, allergies, CHF, asthma/COPD. Narrative Course This patient presents with a cough productive of sputum. She is having fevers and chills. She has been sick for about 2 weeks. CXR>>No acute disease. CBC & BMP Diagram 08/30/17 17:00 Calcium Level 8.7. Lactic acid is 0.7. Her workup is totally negative. She probably has a viral bronchitis that is slow to clear. I will discharge her to home on a prednisone taper. Diagnosis Primary Impression: Bronchitis Patient Instructions: Acute Bronchitis (DC), General Instructions Med/Other Pt SpecificInfo: Prescription(s) given Scripts Hydrocodone-Chlorpheniramine 12 HR Liq (Tussionex Pennkinetic Ext 12 HR Liq) 10- 8 Mg/5 Ml Susp 5 ML PO Q12H Y for COUGH AND/OR COLD SYMPTOMS, #60 ML 0 Refills Prov: Priya Bailey MD 08/30/17 Ondansetron (Zofran) 4 Mg Tab 4 MG PO Q6HR Y for NAUSEA OR VOMITING, #10 TAB 0 Refills Prov: Priya Bailey MD 08/30/17 Prednisone (48) 10 mg tab Dose Pack (Prednisone (48) 10 mg tab Dose Pack) 10 Mg Dspk 10 MG PO DIRECTED for Inflammation, #1 DSPK 0 Refills Prov: Priya Bailey MD 08/30/17 Disposition: 01 DISCHARGE HOME Condition: Stable Priya Bailey MD Aug 30, 2017 16:37
--- NOTE | 2017-08-30 17:20 | RADRPT ---
EXAM DATE/TIME: 08/30/2017 16:48 [facility] COMPARISON: No previous studies available for comparison. INDICATIONS : Cough, and congestion. MEDICAL HISTORY : None. SURGICAL HISTORY : None. ENCOUNTER: Initial ACUITY: 1 week PAIN SCORE: 2/10 LOCATION: Bilateral chest FINDINGS: A single view of the chest demonstrates the lungs to be symmetrically aerated without evidence of mas s, infiltrate or effusion. The cardiomediastinal contours are unremarkable. Osseous structures are intact. CONCLUSION: No acute disease. Magdaleno Hawkins MD on August 30, 2017 at 17:19 Board Certified Radiologist. This report was verified electronically.
[2017-08-30 17:29] LABS: AUTOMATED NEUTROPHIL # 2.9 TH/MM3 (1.8-7.7); BASOPHIL % 0.1 % (0.0-2.0); EOSINOPHIL # 0.1 TH/MM3 (0-0.4); EOSINOPHIL % 1.5 % (0.0-4.0); HEMATOCRIT 38.7 % (35.0-46.0); HEMO FLAGS DIFF FINAL; LYMPH % 39.4 % (9.0-44.0); LYMPHOCYTE # 2.2 TH/MM3 (1.0-4.8); MEAN CORPUSCULAR HEMOGLOBIN 32.3 PG (27.0-34.0); MEAN CORPUSCULAR HGB CONC 34.4 % (32.0-36.0); MONO % 6.3 % (0.0-8.0); NEUT % 52.7 % (16.0-70.0); PLATELET COUNT 205 TH/MM3 (150-450); RED BLOOD COUNT 4.11 MIL/MM3 (4.00-5.30); RED CELL DISTRIBUTION WIDTH 12.2 % (11.6-17.2); WHITE BLOOD COUNT 5.6 TH/MM3 (4.0-11.0)
[2017-08-30 17:37] LABS: POTASSIUM 3.6 MEQ/L (3.5-5.1)
[2017-08-30 17:39] LABS: BICARBONATE 29.4 MEQ/L (21.0-32.0)
[2017-08-30 17:49] VITALS: BP 93/58; PULSE 72; RESP 16; O2SAT 97
[2017-08-30] MEDS ORDERED: PRED10PA2 PO (17:58)
[2017-08-30] MEDS ORDERED: TUSSSUS2 PO (17:58)
[2017-08-30] MEDS ORDERED: ZOFR4TAB PO (17:58)
[2017-08-30] MEDS ORDERED: ONDANSETRON ODT 4 MG TAB PO ONE (18:00)
[2017-08-30 19:22] VITALS: BP 90/52
== END 2017-08-30 19:25 | disposition home or self-care (01) ==
LOC: PHED 14:52
DX: J40 Bronchitis, not specified as acute or chronic (principal); F17.210 Nicotine dependence, cigarettes, uncomplicated
CPT/HCPCS: 71010; 80048; 83605; 85025; 87040; 96365; 96367; 99284; J0456; J0696; J7050

== ENCOUNTER 2017-09-09 10:26 | Emergency (ER) | payer SELFPAY ==
[~2017-09-09] VITALS: Ht 175.3 cm; Wt 72.5 kg
[~2017-09-09 10:26] MED LIST changes: -AMOX500T PO; -CLIN1CAP6 PO; -IBUP800T23 PO; +PRED10PA2 PO; +TUSSSUS2 PO; +ZOFR4TAB PO
[2017-09-09 10:51] VITALS: BP 96/55; PULSE 96; RESP 18; TEMP 98.7; O2SAT 99
[2017-09-09] MEDS ORDERED: SODIUM CHLOR 0.9% 1000 ML INJ 1,000 ML IV SCH (11:02)
[2017-09-09 11:05] VITALS: O2SAT 98
--- NOTE | 2017-09-09 11:09 | PD ---
HPI Chief Complaint: Abdominal Pain Time Seen by Provider: 10:56 Travel History International Travel<30 days: No Contact w/Intl Traveler<30days: No Traveled to known affect area: No History of Present Illness HPI The patient is a 27-year-old female who presents emergency department for abdominal pain. The patient developed abdominal pain is located in the right lower quadrant and right flank last night. The pain has progressed overnight and she subsequently developed nausea and vomiting with anorexia. The patient denies any diarrhea, last normal bowel movement was yesterday. The patient does have a history of tubal ligation, denies any known history of pancreatitis, biliary colic, or gallstones. She does have a history of nephrolithiasis, however, states he symptoms are significantly different. She also notes fevers at home as high as 101.8 orally. The patient's last menstrual cycle was August 18, 2017, she denies . The patient denies any vaginal bleeding or vaginal discharge. The patient denies any dysuria, frequency, urgency, or hematuria. The patient states she is not currently sexually active. Symptoms are moderate, there are no alleviating or exacerbating factors. PFSH Past Medical History Anemia: Yes Asthma: Yes Cerebrovascular Accident: Yes Diminished Hearing: No Gastrointestinal Disorders: Yes (GASTRITIS) GERD: Yes Immunizations Current: Yes ?: Not : 4 Para: 3 Miscarriage: 1 Tubal Ligation: Yes (2010) Past Surgical History Narrative Surgical Tubal ligation Social History Alcohol Use: Yes Tobacco Use: Yes (11/18 PPD) Substance Use: Yes (PREVIOUS HEROIN ADDICTION) Allergies-Medications (Allergen,Severity, Reaction): Coded Allergies: aspirin (Unverified Allergy, Severe, ONLY RUDY ASPRIN, 09/09/17) brompheniramine (Unverified Allergy, Severe, Swelling, 09/09/17) THROAT SWELLING penicillin G (Unverified Allergy, Severe, PT DENIES ALLERGY, 09/09/17) phenylpropanolamine (Unverified Allergy, Severe, Swelling, 09/09/17) THROAT SWELLING adhesive (Unverified Allergy, Intermediate, Rash, 09/09/17) latex (Unverified Allergy, Intermediate, Itching, 09/09/17) promethazine (Unverified Adverse Reaction, Severe, Vomiting, 09/09/17) terbutaline (Unverified Adverse Reaction, Severe, Increased contractions, 09/09/17) Reported Meds & Prescriptions Reported Meds & Active Scripts Active No Active Prescriptions or Reported Medications Review of Systems Except as stated in HPI: all other systems reviewed are Neg General / Constitutional: Positive: Fever Cardiovascular: No: Chest Pain or Discomfort Respiratory: No: Shortness of Breath Gastrointestinal: Positive: Nausea, Vomiting, Abdominal Pain, No: Diarrhea, Constipation Genitourinary: No: Urgency, Frequency, Dysuria, Discharge, Vaginal Bleeding Physical Exam Narrative GENERAL: Awake, alert, pleasant 27-year-old female who appears her stated age and is in no acute respiratory distress. SKIN: Focused skin assessment warm/dry. Tattoos noted. HEAD: Atraumatic. Normocephalic. EYES: No injection or drainage. ENT: No nasal bleeding or discharge. Mucous membranes pink and moist. NECK: Trachea midline. No JVD. CARDIOVASCULAR: Regular rate and rhythm. No murmur appreciated. RESPIRATORY: No accessory muscle use. Clear to auscultation. Breath sounds equal bilaterally. GASTROINTESTINAL: Abdomen soft, tender to palpation right lower quadrant and mid right flank. Back: No CVA tenderness. MUSCULOSKELETAL: No obvious deformities. No clubbing. No cyanosis. No edema. NEUROLOGICAL: Awake and alert. No obvious cranial nerve deficits. Motor grossly within normal limits. Normal speech. PSYCHIATRIC: Appropriate mood and affect; insight and judgment normal. Data Data Last Documented VS Vital Signs Date Time Temp Pulse Resp B/P (MAP) Pulse Ox O2 Delivery O2 Flow Rate FiO2 09/09/17 14:50 70 16 90/54 (66) 98 Room Air 09/09/17 10:51 98.7 Orders Orders Complete Blood Count With Diff (09/09/17 11:02) Comprehensive Metabolic Panel (09/09/17 11:02) Lipase (09/09/17 11:02) Urinalysis - C+S If Indicated (09/09/17 11:02) Ct Abd/Pel W/O Iv Contrast (09/09/17 11:02) Iv Access Insert/Monitor (09/09/17 11:02) Ecg Monitoring (09/09/17 11:02) Oximetry (09/09/17 11:02) Morphine Inj (Morphine Inj) (09/09/17 11:15) Ondansetron Inj (Zofran Inj) (09/09/17 11:15) Sodium Chlor 0.9% 1000 Ml Inj (Ns 1000 M (09/09/17 11:02) Sodium Chloride 0.9% Flush (Ns Flush) (09/09/17 11:15) Ketorolac Inj (Toradol Inj) (09/09/17 11:15) Ed Urine Pregnancytest Poc (09/09/17 11:02) Gc And Chlamydia Pcr (09/09/17 12:43) Wet Prep Profile (09/09/17 12:43) Morphine Inj (Morphine Inj) (09/09/17 13:15) Us Pelvis Comp W Dop Transvag (09/09/17 ) Labs Laboratory Tests Test 09/09/17 11:15 09/09/17 11:20 09/09/17 13:03 White Blood Count 9.2 TH/MM3 Red Blood Count 4.71 MIL/MM3 Hemoglobin 15.0 GM/DL Hematocrit 44.1 % Mean Corpuscular Volume 93.7 FL Mean Corpuscular Hemoglobin 31.9 PG Mean Corpuscular Hemoglobin Concent 34.0 % Red Cell Distribution Width 12.3 % Platelet Count 192 TH/MM3 Mean Platelet Volume 8.3 FL Neutrophils (%) (Auto) 71.5 % Lymphocytes (%) (Auto) 18.8 % Monocytes (%) (Auto) 4.8 % Eosinophils (%) (Auto) 0.5 % Basophils (%) (Auto) 4.4 % Neutrophils # (Auto) 6.7 TH/MM3 Lymphocytes # (Auto) 1.7 TH/MM3 Monocytes # (Auto) 0.4 TH/MM3 Eosinophils # (Auto) 0.0 TH/MM3 Basophils # (Auto) 0.4 TH/MM3 CBC Comment DIFF FINAL Differential Comment Blood Urea Nitrogen 12 MG/DL Creatinine 0.55 MG/DL Random Glucose 80 MG/DL Total Protein 7.8 GM/DL Albumin 4.2 GM/DL Calcium Level 8.9 MG/DL Alkaline Phosphatase 56 U/L Aspartate Amino Transf (AST/SGOT) 13 U/L Alanine Aminotransferase (ALT/SGPT) 16 U/L Total Bilirubin 0.5 MG/DL Sodium Level 137 MEQ/L Potassium Level 4.0 MEQ/L Chloride Level 106 MEQ/L Carbon Dioxide Level 23.7 MEQ/L Anion Gap 7 MEQ/L Estimat Glomerular Filtration Rate 132 ML/MIN Lipase 171 U/L Urine Collection Type CLEAN CATCH Urine Color STRAW Urine Turbidity CLEAR Urine pH 7.0 Urine Specific [place] 1.011 Urine Protein NEG mg/dL Urine Glucose (UA) NEG mg/dL Urine Ketones NEG mg/dL Urine Occult Blood NEG Urine Nitrite NEG Urine Bilirubin NEG Urine Leukocyte Esterase TRACE Urine WBC 0-2 /hpf Urine Squamous Epithelial Cells 0-5 /hpf Urine Amorphous Sediment FEW Microscopic Urinalysis Comment CULT NOT INDICATED Urine Collection Time 1120 Clue Cells (Wet Prep) PRESENT Vaginal Trichomonas (Wet Prep) NONE SEEN Vaginal Yeast (Wet Prep) NONE SEEN MDM Medical Decision Making Medical Screen Exam Complete: Yes Emergency Medical Condition: Yes Medical Record Reviewed: Yes Interpretation(s) Laboratory Tests Test 09/09/17 11:15 09/09/17 11:20 White Blood Count 9.2 TH/MM3 Red Blood Count 4.71 MIL/MM3 Hemoglobin 15.0 GM/DL Hematocrit 44.1 % Mean Corpuscular Volume 93.7 FL Mean Corpuscular Hemoglobin 31.9 PG Mean Corpuscular Hemoglobin Concent 34.0 % Red Cell Distribution Width 12.3 % Platelet Count 192 TH/MM3 Mean Platelet Volume 8.3 FL Neutrophils (%) (Auto) 71.5 % Lymphocytes (%) (Auto) 18.8 % Monocytes (%) (Auto) 4.8 % Eosinophils (%) (Auto) 0.5 % Basophils (%) (Auto) 4.4 % Neutrophils # (Auto) 6.7 TH/MM3 Lymphocytes # (Auto) 1.7 TH/MM3 Monocytes # (Auto) 0.4 TH/MM3 Eosinophils # (Auto) 0.0 TH/MM3 Basophils # (Auto) 0.4 TH/MM3 CBC Comment DIFF FINAL Differential Comment Blood Urea Nitrogen 12 MG/DL Creatinine 0.55 MG/DL Random Glucose 80 MG/DL Total Protein 7.8 GM/DL Albumin 4.2 GM/DL Calcium Level 8.9 MG/DL Alkaline Phosphatase 56 U/L Aspartate Amino Transf (AST/SGOT) 13 U/L Alanine Aminotransferase (ALT/SGPT) 16 U/L Total Bilirubin 0.5 MG/DL Sodium Level 137 MEQ/L Potassium Level 4.0 MEQ/L Chloride Level 106 MEQ/L Carbon Dioxide Level 23.7 MEQ/L Anion Gap 7 MEQ/L Estimat Glomerular Filtration Rate 132 ML/MIN Lipase 171 U/L Urine Collection Type CLEAN CATCH Urine Color STRAW Urine Turbidity CLEAR Urine pH 7.0 Urine Specific [place] 1.011 Urine Protein NEG mg/dL Urine Glucose (UA) NEG mg/dL Urine Ketones NEG mg/dL Urine Occult Blood NEG Urine Nitrite NEG Urine Bilirubin NEG Urine Leukocyte Esterase TRACE Urine WBC 0-2 /hpf Urine Squamous Epithelial Cells 0-5 /hpf Urine Amorphous Sediment FEW Microscopic Urinalysis Comment CULT NOT INDICATED Urine Collection Time 1120 Last Impressions Abdomen/Pelvis CT 09/09/17 1102 Signed Impressions: Service Date/Time: Saturday, September 09, 2017 11:43 - CONCLUSION: 1. Right adnexal cystic mass measuring 3.9 x 3.0 cm. Free fluid is noted within the cul-de-sac and right adnexal region. Pelvic ultrasound may be helpful for further evaluation of this patient if clinically indicated. 2. No CT evidence of acute appendicitis. Taras Isaacs MD Abdomen/Pelvis/Transvag US 09/09/17 0000 Signed Impressions: Service Date/Time: Saturday, September 09, 2017 13:52 - CONCLUSION: 1. Hypodense area on the prior pelvic CT corresponds to a probable 3.4 x 3.5 x 3.8 cm hemorrhagic type cyst in the right ovary. 2. Elongated cystic area in the uterine fundus measuring 2.9 x 0.7 x 1.1 cm could represent a blighted ovum or in progress. Negative test. 3. Small amount of free fluid in the cul-de-sac. Denis Lopes MD Differential Diagnosis Differential diagnosis includes appendicitis, atypical cholecystitis, cholelithiasis, pancreatitis, ovarian cyst, PID, cervicitis, pyelonephritis, UTI , ectopic . Narrative Course IV was established, labs are drawn and sent, and the patient was placed on cardiac telemetry monitoring and continuous pulse oximetry monitoring. The patient was administered morphine, Toradol, Zofran, and IV fluids. Noncontrast CT of the abdomen and pelvis was ordered to evaluate for possible appendicitis. CBC, CMP, and UA are unremarkable. Pelvic exam was performed, wet prep and gonorrhea/chlamydia were sent to lab. The patient was administered a second dose of pain medications. CT reveals a cystic adnexal mass the right lower quadrant, beta is negative, recommends ultrasound. Therefore, ultrasound was ordered to evaluate the adnexal cystic mass. Ultrasound reveals a right hemorrhagic ovarian cyst. Wet prep is positive for bacterial vaginosis. The patient will be treated with Flagyl, [place], and ibuprofen. She will be provided a work excuse for today and tomorrow. She will be provided a copy of her CT results, ultrasound results, and lab results at discharge. Diagnosis Primary Impression: Hemorrhagic cyst of right ovary Additional Impression: Bacterial vaginosis Patient Instructions: General Instructions Additional Instructions: Medications as directed. Please provide the patient a copy of her lab results, CT results, and ultrasound results at discharge. Work excuse for today and tomorrow. Return if symptoms worsen or progress. Med/Other Pt SpecificInfo: Prescription(s) given Scripts Metronidazole (Flagyl) 500 Mg Tab 500 MG PO BID for Infection for 7 Days, #14 TAB 0 Refills Prov: Wm Adams MD 09/09/17 Ibuprofen (Ibuprofen) 600 Mg Tab 600 MG PO Q6H Y for Pain/Inflammation, #20 TAB 0 Refills Prov: Wm Adams MD 09/09/17 Hydrocodone-Acetaminophen ([place]) 5-325 mg Tab 1 TAB PO Q6H Y for PAIN, #15 TAB 0 Refills Prov: Wm Adams MD 09/09/17 Disposition: 01 DISCHARGE HOME Condition: Stable Wm Adams MD Sep 09, 2017 11:09
[2017-09-09] MEDS ORDERED: SODIUM CHLORIDE 0.9% FLUSH 10 ML FLUSH IV FLUSH PRN (11:15)
[2017-09-09] MEDS ORDERED: KETOROLAC TROMETHAMINE 30 MG/ML (IVP) VIAL IVP ONE (11:15)
[2017-09-09] MEDS ORDERED: MORPHINE SULFATE 4 MG/ML INJ IV PUSH ONE ×2 (11:15→13:15)
[2017-09-09] MEDS ORDERED: ONDANSETRON HCL 4 MG/2 ML VIAL IVP ONE (11:15)
[2017-09-09 11:37] LABS: AUTOMATED NEUTROPHIL # 6.7 TH/MM3 (1.8-7.7); BASOPHIL # 0.4 TH/MM3 (0-0.2); BASOPHIL % 4.4 % (0.0-2.0); EOSINOPHIL % 0.5 % (0.0-4.0); HEMATOCRIT 44.1 % (35.0-46.0); LYMPH % 18.8 % (9.0-44.0); LYMPHOCYTE # 1.7 TH/MM3 (1.0-4.8); MEAN CELL VOLUME 93.7 FL (80.0-100.0); MEAN CORPUSCULAR HEMOGLOBIN 31.9 PG (27.0-34.0); MEAN PLATELET VOLUME 8.3 FL (7.0-11.0); MONO % 4.8 % (0.0-8.0); MONOCYTE # 0.4 TH/MM3 (0-0.9); NEUT % 71.5 % (16.0-70.0); PLATELET COUNT 192 TH/MM3 (150-450); RED BLOOD COUNT 4.71 MIL/MM3 (4.00-5.30); RED CELL DISTRIBUTION WIDTH 12.3 % (11.6-17.2); WHITE BLOOD COUNT 9.2 TH/MM3 (4.0-11.0)
[2017-09-09 11:41] LABS: BILIRUBIN, URINE NEG (NEG); BLOOD, URINE NEG (NEG); GLUCOSE,URINE NEG (NEG); KETONE, URINE NEG (NEG); NITRITE,URINE NEG (NEG); URINE LEUKOCYTE ESTERASE TRACE (NEG)
[2017-09-09 11:46] LABS: AMORPHOUS SEDIMENT, URINE FEW; SQUAMOUS EPITHELIAL CELL URINE 0-5 /hpf (0-5); URINE COLOR STRAW (YELLW/STRAW); WBC, URINE 0-2 /hpf (0-5)
[2017-09-09 11:48] LABS: CHLORIDE 106 MEQ/L (98-107); SODIUM (NA) 137 MEQ/L (136-145)
[2017-09-09 11:51] LABS: ALBUMIN 4.2 GM/DL (3.4-5.0); BICARBONATE 23.7 MEQ/L (21.0-32.0); CALCIUM 8.9 MG/DL (8.5-10.1); GLUCOSE,RANDOM 80 MG/DL (74-106); LIPASE 171 U/L (73-393)
[2017-09-09 11:54] LABS: ALT (GPT) 16 U/L (10-53); AST (GOT) 13 U/L (15-37); CREATININE 0.55 MG/DL (0.50-1.00); GLOMERULAR FILTRATION RATE 132 ML/MIN (>89)
[2017-09-09 11:55] LABS: BLOOD UREA NITROGEN 12 MG/DL (7-18)
[2017-09-09 11:56] LABS: TOTAL BILIRUBIN ADULT 0.5 MG/DL (0.2-1.0); TOTAL PROTEIN 7.8 GM/DL (6.4-8.2)
[2017-09-09 11:57] LABS: ALKALINE PHOSPHATASE 56 U/L (45-117)
[2017-09-09 12:10] VITALS: BP 105/55; PULSE 78; RESP 16; O2SAT 98
--- NOTE | 2017-09-09 12:23 | RADRPT ---
EXAM DATE/TIME: 09/09/2017 11:43 [facility] COMPARISON: No previous studies available for comparison. INDICATIONS : Right lower quadrant pain with fever. Evaluate for appendicitis. ORAL CONTRAST: No oral contrast ingested. RADIATION DOSE: 7.81 CTDIvol (mGy) MEDICAL HISTORY : Cerebrovascular disease. Gastroesophageal reflux disease. Gastritis. SURGICAL HISTORY : Tubal ligation. ENCOUNTER: Initial ACUITY: 2 days PAIN SCALE: 5/10 LOCATION: Right lower quadrant TECHNIQUE: Volumetric scanning of the abdomen and pelvis was performed. Using automated exposure control and ad justment of the mA and/or kV according to patient size, radiation dose was kept as low as reasonably achievable to obtain optimal diagnostic quality images. DICOM format image data is available electro nically for review and comparison. FINDINGS: LOWER LUNGS: The visualized lower lungs are clear. LIVER: Homogeneous density without lesion. There is no dilation of the biliary tree. No calcified gallston es. SPLEEN: Normal size without lesion. PANCREAS: Within normal limits. KIDNEYS: Normal in size and shape. There is no mass, stone, or hydronephrosis. ADRENAL GLANDS: Within normal limits. VASCULAR: There is no aortic aneurysm. BOWEL/MESENTERY: The stomach, small bowel, and colon demonstrate no acute abnormality. There is no free intraperitone al air or fluid. The appendix is normal. ABDOMINAL WALL: Within normal limits. RETROPERITONEUM: There is no lymphadenopathy. BLADDER: No wall thickening or mass. REPRODUCTIVE: There is a right adnexal cystic mass measuring 3.9 x 3.0 cm. Free fluid is noted within the cul-de-sa c and right adnexal region. Pelvic ultrasound may be helpful for further evaluation of this patient i f clinically indicated. INGUINAL: There is no lymphadenopathy or hernia. MUSCULOSKELETAL: Within normal limits for patient age. CONCLUSION: 1. Right adnexal cystic mass measuring 3.9 x 3.0 cm. Free fluid is noted within the cul-de-sac and ri ght adnexal region. Pelvic ultrasound may be helpful for further evaluation of this patient if clinic ally indicated. 2. No CT evidence of acute appendicitis. Taras Isaacs MD on September 09, 2017 at 12:17 Board Certified Radiologist. This report was verified electronically.
[2017-09-09 13:27] VITALS: BP 89/57; PULSE 72; RESP 16; O2SAT 98
[2017-09-09 14:50] VITALS: BP 90/54; PULSE 70; RESP 16; O2SAT 98
--- NOTE | 2017-09-09 15:27 | RADRPT ---
EXAM DATE/TIME: 09/09/2017 13:52 [facility] COMPARISON: CT ABDOMEN & PELVIS W/O CONTRAST, September 09, 2017, 11:43. INDICATIONS : Right pelvic pain. Abnormal CT. MEDICAL HISTORY : Gastroesophageal reflux disease. Gastritis. Previous heroin addict. Anemia. Asthma. SURGICAL HISTORY : Dilation and curettage. ENCOUNTER: Initial ACUITY: 1 day PAIN SCORE: 10/10 LOCATION: Bilateral pelvis MEASUREMENTS: UTERUS: 9.5 x 5.0 x 5.8 cm ENDOMETRIAL STRIPE: 18 mm RIGHT OVARY: 3.6 x 1.6 x 4.5 cm LEFT OVARY: 2.9 x 1.5 x 2.7 cm FINDINGS: UTERUS: Elongated endometrial cystic area in the fundus measuring 3.9 x 0.7 x 1.1 cm. Negative bedside pregna ncy test. May represent a blighted ovum. Small nabothian type cysts in the cervix. RIGHT OVARY: Large, 3.4 x 2.5 x 2.8 cm complex cystic area associated with the right ovary probably represents a h emorrhagic cyst LEFT OVARY: 2.2 cm cyst. Otherwise sonographically normal. MISCELLANEOUS: Free fluid in the cul-de-sac. CONCLUSION: 1. Hypodense area on the prior pelvic CT corresponds to a probable 3.4 x 3.5 x 3.8 cm hemorrhagic typ e cyst in the right ovary. 2. Elongated cystic area in the uterine fundus measuring 2.9 x 0.7 x 1.1 cm could represent a blighte d ovum or in progress. Negative test. 3. Small amount of free fluid in the cul-de-sac. Denis Lopes MD on September 09, 2017 at 15:21 Board Certified Radiologist. This report was verified electronically.
[2017-09-09] MEDS ORDERED: NORC5TAB PO (15:38)
[2017-09-09] MEDS ORDERED: IBUP-232 PO (15:38)
[2017-09-09] MEDS ORDERED: METR-1 PO (15:38)
[2017-09-09 16:32] VITALS: BP 92/59
== END 2017-09-09 16:32 | disposition home or self-care (01) ==
LOC: PHED 10:26
DX: N83.201 Unspecified ovarian cyst, right side (principal); N76.0 Acute vaginitis; F17.200 Nicotine dependence, unspecified, uncomplicated
CPT/HCPCS: 74176; 76830; 76856; 80053; 81001; 83690; 84703; 85025; 87210; 87491; 87591; 93975; 96361; 96374; 96375; 96376; 99285; J1885; J2270; J2405; J7030

== ENCOUNTER 2017-12-08 18:39 | Emergency (ER) | payer SELFPAY ==
[~2017-12-08] VITALS: Ht 175.3 cm; Wt 78.2 kg
[~2017-12-08 18:39] MED LIST changes: +IBUP-232 PO; +METR-1 PO; +NORC5TAB PO; -PRED10PA2 PO; -TUSSSUS2 PO; -ZOFR4TAB PO
[2017-12-08 19:09] VITALS: BP 116/54; PULSE 79; RESP 14; TEMP 98.5; O2SAT 99
[2017-12-08] MEDS ORDERED: OSEL75 PO (20:51)
--- NOTE | 2017-12-08 20:51 | PD ---
HPI Chief Complaint: Cold / Flu Symptoms Time Seen by Provider: 20:32 Travel History International Travel<30 days: No Contact w/Intl Traveler<30days: No Traveled to known affect area: No History of Present Illness HPI 27 -year-old female here with flulike illness. She reports fever, chills, body ache times one day. Exposure to the flu. Associated nausea with 2 episodes of nonbloody emesis. No abdominal pain. Symptom severity is moderate. No aggravating or alleviating factors. PFSH Past Medical History Medical History: Denies Significant Hx Anemia: Yes Asthma: Yes Cerebrovascular Accident: Yes Diminished Hearing: No Gastrointestinal Disorders: Yes (GASTRITIS) GERD: Yes Immunizations Current: Yes Tetanus Vaccination: < 5 Years Influenza Vaccination: No ?: Unknown LMP: 11 24 18 : 4 Para: 3 Miscarriage: 1 Tubal Ligation: Yes (2010) Social History Alcohol Use: No Tobacco Use: Yes (1ppd) Substance Use: No Allergies-Medications (Allergen,Severity, Reaction): Coded Allergies: aspirin (Unverified Allergy, Severe, ONLY RUDY ASPRIN, 12/08/17) brompheniramine (Unverified Allergy, Severe, Swelling, 12/08/17) THROAT SWELLING penicillin G (Unverified Allergy, Severe, PT DENIES ALLERGY, 12/08/17) phenylpropanolamine (Unverified Allergy, Severe, Swelling, 12/08/17) THROAT SWELLING adhesive (Unverified Allergy, Intermediate, Rash, 12/08/17) latex (Unverified Allergy, Intermediate, Itching, 12/08/17) promethazine (Unverified Adverse Reaction, Severe, Vomiting, 12/08/17) terbutaline (Unverified Adverse Reaction, Severe, Increased contractions, 12/08/17) Reported Meds & Prescriptions Reported Meds & Active Scripts Active Review of Systems Except as stated in HPI: all other systems reviewed are Neg General / Constitutional: Positive: Fever Eyes: No: Visual changes HENT: No: Headaches Cardiovascular: No: Chest Pain or Discomfort Respiratory: Positive: Cough Gastrointestinal: Positive: Nausea, Vomiting Genitourinary: No: Dysuria Musculoskeletal: Positive: Myalgias Skin: No Rash Neurologic: No: Weakness Physical Exam Narrative GENERAL: Alert well-appearing female. SKIN: Warm and dry. No rash. HEAD: Normocephalic. EYES: No scleral icterus. No injection or drainage. Ears/nose/throat: Clear nasal discharge. Mild Pharyngeal erythema without tonsillar hypertrophy or exudate. NECK: Supple, trachea midline. No meningismus. CARDIOVASCULAR: Regular rate and rhythm without murmurs, gallops, or rubs. RESPIRATORY: Breath sounds equal bilaterally. No accessory muscle use. GASTROINTESTINAL: Abdomen soft, non-tender, nondistended. MUSCULOSKELETAL: No cyanosis, or edema. BACK: Nontender without obvious deformity. No CVA tenderness. Data Data Last Documented VS Vital Signs Date Time Temp Pulse Resp B/P (MAP) Pulse Ox O2 Delivery O2 Flow Rate FiO2 12/08/17 19:09 98.5 79 14 116/54 (74) 99 MDM Medical Decision Making Medical Screen Exam Complete: Yes Emergency Medical Condition: Yes Differential Diagnosis Influenza, URI, pharyngitis, pneumonia Narrative Course 27-year-old female here with flulike illness. Exposure to the flu. She is nontoxic appearing. Diagnosis Primary Impression: Influenza-like illness Referrals: Primary Care Physician Additional Instructions: Tylenol and ibuprofen as needed for fever and body aches. [id number] cough and cold medication for cough. Stay well hydrated Scripts Oseltamivir (Tamiflu) 75 Mg Cap 75 MG PO BID for Mgmt Viral Infection for 5 Days, #10 CAP 0 Refills Prov: Crystal Reyes 12/08/17 Disposition: 01 DISCHARGE HOME Condition: Stable Crystal Reyes Dec 08, 2017 20:51
== END 2017-12-08 21:00 | disposition home or self-care (01) ==
LOC: PHEFT 18:39
DX: J11.1 Influenza due to unidentified influenza virus with other respiratory manifestations (principal); J45.909 Unspecified asthma, uncomplicated; K21.9 Gastro-esophageal reflux disease without esophagitis; F17.210 Nicotine dependence, cigarettes, uncomplicated; Z20.828 Contact with and (suspected) exposure to other viral communicable diseases; Z86.73 Personal history of transient ischemic attack (TIA), and cerebral infarction without residual deficits; Z88.0 Allergy status to penicillin; Z88.8 Allergy status to other drugs, medicaments and biological substances
CPT/HCPCS: 99283

== ENCOUNTER 2017-12-22 18:20 | Emergency (ER) | payer SELFPAY ==
[~2017-12-22] VITALS: Ht 175.3 cm; Wt 78.0 kg
[~2017-12-22 18:20] MED LIST changes: -IBUP-232 PO; -METR-1 PO; -NORC5TAB PO; +OSEL75 PO
[2017-12-22 18:33] VITALS: BP 113/58; PULSE 96; RESP 16; TEMP 98.7; O2SAT 100
--- NOTE | 2017-12-22 20:14 | PD ---
HPI Chief Complaint: Skin Problem Time Seen by Provider: 20:02 Travel History International Travel<30 days: No Contact w/Intl Traveler<30days: No Traveled to known affect area: No History of Present Illness HPI 27yo F with no PMH presents to the ED with c/o pain behind left jaw for 1 week. Said it is worst and swells up when she eats sour food and has been on a liquid diet. Denies any fever, chest pain, sob, n/v, abdominal pain, focal weakness or numbness. PFSH Past Medical History Anemia: Yes Asthma: Yes Cerebrovascular Accident: Yes Diminished Hearing: No Gastrointestinal Disorders: Yes (GASTRITIS) GERD: Yes Immunizations Current: Yes ?: Not : 4 Para: 3 Miscarriage: 1 Tubal Ligation: Yes (2010) Social History Alcohol Use: No Tobacco Use: Yes Substance Use: No Allergies-Medications (Allergen,Severity, Reaction): Coded Allergies: aspirin (Unverified Allergy, Severe, ONLY RUDY ASPRIN, 12/22/17) brompheniramine (Unverified Allergy, Severe, Swelling, 12/22/17) THROAT SWELLING penicillin G (Unverified Allergy, Severe, PT DENIES ALLERGY, 12/22/17) phenylpropanolamine (Unverified Allergy, Severe, Swelling, 12/22/17) THROAT SWELLING adhesive (Unverified Allergy, Intermediate, Rash, 12/22/17) latex (Unverified Allergy, Intermediate, Itching, 12/22/17) promethazine (Unverified Adverse Reaction, Severe, Vomiting, 12/22/17) terbutaline (Unverified Adverse Reaction, Severe, Increased contractions, 12/22/17) Reported Meds & Prescriptions Reported Meds & Active Scripts Active Clindamycin (Clindamycin HCl) 300 Mg Cap 300 Mg PO Q6H 7 Days Tylenol (Acetaminophen) 325 Mg Tab 650 Mg PO Q6H PRN Review of Systems Except as stated in HPI: all other systems reviewed are Neg Physical Exam Narrative GENERAL: 27yo F not in distress. SKIN: Focused skin assessment warm/dry. HEAD: Atraumatic. Normocephalic. EYES: Pupils equal and round. No scleral icterus. No injection or drainage. ENT: +TTP behind angle of left mandible. No swelling. No erythema. No trismus. NECK: Trachea midline. No JVD. CARDIOVASCULAR: Regular rate and rhythm. No murmur appreciated. RESPIRATORY: No accessory muscle use. Clear to auscultation. Breath sounds equal bilaterally. GASTROINTESTINAL: Abdomen soft, non-tender, nondistended. MUSCULOSKELETAL: No obvious deformities. No clubbing. No cyanosis. No edema. NEUROLOGICAL: Awake and alert. No obvious cranial nerve deficits. Motor grossly within normal limits. Normal speech. PSYCHIATRIC: Appropriate mood and affect; insight and judgment normal. Data Data Last Documented VS Vital Signs Date Time Temp Pulse Resp B/P (MAP) Pulse Ox O2 Delivery O2 Flow Rate FiO2 12/22/17 18:33 98.7 96 16 113/58 (76) 100 Orders Orders Acetaminophen (Tylenol) (12/22/17 20:30) Ed Discharge Order (12/22/17 20:26) [facility] Medical Decision Making Medical Screen Exam Complete: Yes Emergency Medical Condition: Yes Differential Diagnosis Blocked parotid gland duct vs. sialadenitis Narrative Course 27yo F with c/o pain behind left jaw and swelling when she eats sour food for 1 week. Impression is more blocked parotid gland duct. Will give acetaminophen and have pt follow up with ENT. Will prophylactically cover with antibiotics. Pt is allergic to penicillin and requesting a free antibiotic from [facility] so will give bactrim. Return precautions given. Diagnosis Primary Impression: Parotid gland pain Referrals: Hilario Hernandez MD call for appointment Patient Instructions: General Instructions Departure Forms: Tests/Procedures, Work Release Enter return to work date: Dec 24, 2017 Additional Instructions: Please follow up with ENT as soon as possible. Return to the ED if symptoms worsen. Med/Other Pt SpecificInfo: Prescription(s) given Scripts Sulfamethoxazole-Trimethoprim (Sulfamethoxazole-Trimethoprim) 800-160 Mg Tab 1 TAB PO BID for Infection, #14 TAB 0 Refills Prov: Iesha Mcwilliams DO 12/22/17 Acetaminophen (Tylenol) 325 Mg Tab 650 MG PO Q6H Y for PAIN SCALE 1 TO 4, #20 TAB 0 Refills Prov: Iesha Mcwilliams DO 12/22/17 Disposition: 01 DISCHARGE HOME Condition: Stable Iesha Mcwilliams DO Dec 22, 2017 20:14
[2017-12-22] MEDS ORDERED: CLIN300C5 PO (20:25)
[2017-12-22] MEDS ORDERED: TYLE325T PO (20:25)
[2017-12-22] MEDS ORDERED: SULF1TAB23 PO (20:29)
[2017-12-22] MEDS ORDERED: ACETAMINOPHEN 325 MG TAB PO ONE (20:30)
== END 2017-12-22 20:38 | disposition home or self-care (01) ==
LOC: PHED 18:20 → PHEFT 20:38
DX: K11.8 Other diseases of salivary glands (principal); J45.909 Unspecified asthma, uncomplicated; K21.9 Gastro-esophageal reflux disease without esophagitis; Z86.73 Personal history of transient ischemic attack (TIA), and cerebral infarction without residual deficits; Z72.0 Tobacco use
CPT/HCPCS: 99283

== ENCOUNTER 2018-01-13 16:29 | Emergency (ER) | payer SELFPAY ==
[~2018-01-13] VITALS: Ht 175.3 cm; Wt 78.8 kg
[~2018-01-13 16:29] MED LIST changes: -OSEL75 PO; +SULF1TAB23 PO; +TYLE325T PO
[2018-01-13 16:33] VITALS: BP 114/59; PULSE 100; RESP 18; TEMP 98.6; O2SAT 99
[2018-01-13 16:48] LABS: BILIRUBIN, URINE NEG (NEG); BLOOD, URINE NEG (NEG); GLUCOSE,URINE NEG (NEG); KETONE, URINE NEG (NEG); NITRITE,URINE NEG (NEG); PH, URINE 8.5 (5.0-8.5); URINE LEUKOCYTE ESTERASE NEG (NEG)
[2018-01-13 16:55] LABS: URINE COLOR YELLOW (YELLW/STRAW)
[2018-01-13 16:56] LABS: MUCUS URINE MOD /lpf (OCC)
--- NOTE | 2018-01-13 17:11 | PD ---
HPI Chief Complaint: Flank/Kidney Pain Time Seen by Provider: 17:05 Travel History International Travel<30 days: No Contact w/Intl Traveler<30days: No Traveled to known affect area: No History of Present Illness HPI 27 y/o female presents with right sided back pain since this afternoon. She denies any other concurrent complaints. She states it feels similar to when she had a kidney stone in the past. Quality of pain is sharp. Severity is moderate. She denies specific modifying factors. Duration is couple of hours. She denies any specific migration of the pain. PFSH Past Medical History Anemia: Yes Asthma: Yes Cerebrovascular Accident: Yes Diminished Hearing: No Gastrointestinal Disorders: Yes (GASTRITIS) GERD: Yes Immunizations Current: Yes ?: Not : 4 Para: 3 Miscarriage: 1 Tubal Ligation: Yes (2010) Social History Alcohol Use: No Tobacco Use: Yes Substance Use: No Allergies-Medications (Allergen,Severity, Reaction): Coded Allergies: aspirin (Unverified Allergy, Severe, ONLY RUDY ASPRIN, 01/13/18) brompheniramine (Unverified Allergy, Severe, Swelling, 01/13/18) THROAT SWELLING penicillin G (Unverified Allergy, Severe, PT DENIES ALLERGY, 01/13/18) phenylpropanolamine (Unverified Allergy, Severe, Swelling, 01/13/18) THROAT SWELLING adhesive (Unverified Allergy, Intermediate, Rash, 01/13/18) latex (Unverified Allergy, Intermediate, Itching, 01/13/18) promethazine (Unverified Adverse Reaction, Severe, Vomiting, 01/13/18) terbutaline (Unverified Adverse Reaction, Severe, Increased contractions, 01/13/18) Reported Meds & Prescriptions Reported Meds & Active Scripts Active No Active Prescriptions or Reported Medications Review of Systems Except as stated in HPI: all other systems reviewed are Neg Physical Exam Narrative GENERAL: 27-year-old female in no apparent distress SKIN: Focused skin assessment warm/dry. HEAD: Atraumatic. Normocephalic. EYES: Pupils equal and round. No scleral icterus. No injection or drainage. ENT: No nasal bleeding or discharge. Mucous membranes pink and moist. NECK: Trachea midline. No JVD. CARDIOVASCULAR: Regular rate and rhythm. RESPIRATORY: No accessory muscle use. no increased effort GASTROINTESTINAL: Abdomen soft, non-tender, nondistended. MUSCULOSKELETAL: No obvious deformities. No clubbing. No cyanosis. No edema. NEUROLOGICAL: Awake and alert. No obvious cranial nerve deficits. Motor grossly within normal limits. Normal speech. PSYCHIATRIC: Appropriate mood and affect; insight and judgment normal. Back: ttp in right lateral lower back, no cvat Data Data Last Documented VS Vital Signs Date Time Temp Pulse Resp B/P (MAP) Pulse Ox O2 Delivery O2 Flow Rate FiO2 01/13/18 19:51 88 18 98 01/13/18 19:41 Room Air 01/13/18 16:33 98.6 Orders Orders Urinalysis - C+S If Indicated (01/13/18 16:35) Ed Urine Pregnancytest Poc (01/13/18 16:35) Complete Blood Count With Diff (01/13/18 17:06) Comprehensive Metabolic Panel (01/13/18 17:06) Lipase (01/13/18 17:06) Ct Abd/Pel W/O Iv Contrast (01/13/18 ) Iv Access Insert/Monitor (01/13/18 17:06) Ketorolac Inj (Toradol Inj) (01/13/18 17:15) Ed Discharge Order (01/13/18 19:36) Labs Laboratory Tests Test 01/13/18 16:40 01/13/18 17:30 Urine Color YELLOW Urine Turbidity CLEAR Urine pH 8.5 Urine Specific [place] 1.025 Urine Protein TRACE mg/dL Urine Glucose (UA) NEG mg/dL Urine Ketones NEG mg/dL Urine Occult Blood NEG Urine Nitrite NEG Urine Bilirubin NEG Urine Leukocyte Esterase NEG Urine WBC 3-5 /hpf Urine Squamous Epithelial Cells 6-8 /hpf Urine Mucus MOD /lpf Microscopic Urinalysis Comment CULT NOT INDICATED White Blood Count 5.8 TH/MM3 Red Blood Count 4.22 MIL/MM3 Hemoglobin 13.7 GM/DL Hematocrit 40.2 % Mean Corpuscular Volume 95.3 FL Mean Corpuscular Hemoglobin 32.4 PG Mean Corpuscular Hemoglobin Concent 34.0 % Red Cell Distribution Width 12.1 % Platelet Count 205 TH/MM3 Mean Platelet Volume 7.5 FL Neutrophils (%) (Auto) 63.0 % Lymphocytes (%) (Auto) 28.2 % Monocytes (%) (Auto) 4.7 % Eosinophils (%) (Auto) 2.8 % Basophils (%) (Auto) 1.3 % Neutrophils # (Auto) 3.6 TH/MM3 Lymphocytes # (Auto) 1.6 TH/MM3 Monocytes # (Auto) 0.3 TH/MM3 Eosinophils # (Auto) 0.2 TH/MM3 Basophils # (Auto) 0.1 TH/MM3 CBC Comment DIFF FINAL Differential Comment Blood Urea Nitrogen 11 MG/DL Creatinine 0.60 MG/DL Random Glucose 98 MG/DL Total Protein 7.4 GM/DL Albumin 4.0 GM/DL Calcium Level 8.4 MG/DL Alkaline Phosphatase 53 U/L Aspartate Amino Transf (AST/SGOT) 10 U/L Alanine Aminotransferase (ALT/SGPT) 17 U/L Total Bilirubin 0.2 MG/DL Sodium Level 139 MEQ/L Potassium Level 3.8 MEQ/L Chloride Level 107 MEQ/L Carbon Dioxide Level 27.1 MEQ/L Anion Gap 5 MEQ/L Estimat Glomerular Filtration Rate 119 ML/MIN Lipase 233 U/L MDM Medical Decision Making Medical Screen Exam Complete: Yes Emergency Medical Condition: Yes Medical Record Reviewed: Yes (pmh confirmed) Interpretation(s) CBC & BMP Diagram 01/13/18 17:30 Total Protein 7.4, Albumin 4.0, Calcium Level 8.4 L, Alkaline Phosphatase 53, Aspartate Amino Transf (AST/SGOT) 10 L, Alanine Aminotransferase (ALT/SGPT) 17, Total Bilirubin 0.2 ct abdomen pelvis no acute Differential Diagnosis stone, uti, musculoskeletal.... Narrative Course will check labs, ct and reval, beta and ua no acute from triage, give toradol for pain ed workup no emergent, Patient denies any new complaints and states that they are feeling better. Patient happy with care, all questions answered. Patient knows that follow up is incumbent on them and to return to the emergency room immediately if new or worsening symptoms develop. Patient given strict return precautions, vitals reviewed and are normal, agrees to further workup as an outpatient. Diagnosis Primary Impression: Abdominal pain Qualified Codes: R10.9 - Unspecified abdominal pain Patient Instructions: General Instructions Additional Instructions: return as needed, follow with primary this week for recheck, tylenol as needed Med/Other Pt SpecificInfo: No Change to Meds Scripts No Active Prescriptions or Reported Meds Disposition: 01 DISCHARGE HOME Condition: Stable Bianca Parekh MD Jan 13, 2018 17:11
[2018-01-13] MEDS ORDERED: KETOROLAC TROMETHAMINE 30 MG/ML (IVP) VIAL IV PUSH ONE (17:15)
[2018-01-13 17:40] LABS: AUTOMATED NEUTROPHIL # 3.6 TH/MM3 (1.8-7.7); BASOPHIL # 0.1 TH/MM3 (0-0.2); BASOPHIL % 1.3 % (0.0-2.0); EOSINOPHIL # 0.2 TH/MM3 (0-0.4); EOSINOPHIL % 2.8 % (0.0-4.0); HEMATOCRIT 40.2 % (35.0-46.0); HEMOGLOBIN 13.7 GM/DL (11.6-15.3); LYMPH % 28.2 % (9.0-44.0); LYMPHOCYTE # 1.6 TH/MM3 (1.0-4.8); MEAN CELL VOLUME 95.3 FL (80.0-100.0); MEAN CORPUSCULAR HEMOGLOBIN 32.4 PG (27.0-34.0); MEAN PLATELET VOLUME 7.5 FL (7.0-11.0); MONO % 4.7 % (0.0-8.0); MONOCYTE # 0.3 TH/MM3 (0-0.9); PLATELET COUNT 205 TH/MM3 (150-450); RED BLOOD COUNT 4.22 MIL/MM3 (4.00-5.30); RED CELL DISTRIBUTION WIDTH 12.1 % (11.6-17.2); WHITE BLOOD COUNT 5.8 TH/MM3 (4.0-11.0)
[2018-01-13 17:49] LABS: CHLORIDE 107 MEQ/L (98-107); SODIUM (NA) 139 MEQ/L (136-145)
[2018-01-13 17:53] LABS: BICARBONATE 27.1 MEQ/L (21.0-32.0); BLOOD UREA NITROGEN 11 MG/DL (7-18); CALCIUM 8.4 MG/DL (8.5-10.1); GLUCOSE,RANDOM 98 MG/DL (74-106)
[2018-01-13 17:56] LABS: ALT (GPT) 17 U/L (10-53); AST (GOT) 10 U/L (15-37); GLOMERULAR FILTRATION RATE 119 ML/MIN (>89)
[2018-01-13 17:58] LABS: TOTAL BILIRUBIN ADULT 0.2 MG/DL (0.2-1.0); TOTAL PROTEIN 7.4 GM/DL (6.4-8.2)
[2018-01-13 17:59] LABS: ALKALINE PHOSPHATASE 53 U/L (45-117)
--- NOTE | 2018-01-13 19:03 | RADRPT ---
EXAM DATE/TIME: 01/13/2018 18:42 [facility] COMPARISON: CT ABDOMEN & PELVIS W/O CONTRAST, September 09, 2017, 11:43. INDICATIONS : Bilateral flank pain. ORAL CONTRAST: No oral contrast ingested. RADIATION DOSE: 14.14 CTDIvol (mGy) MEDICAL HISTORY : Cerebrovascular disease. SURGICAL HISTORY : Tubal ligation. ENCOUNTER: Initial ACUITY: 1 day PAIN SCALE: 5/10 LOCATION: Bilateral flank TECHNIQUE: Volumetric scanning of the abdomen and pelvis was performed. Using automated exposure control and ad justment of the mA and/or kV according to patient size, radiation dose was kept as low as reasonably achievable to obtain optimal diagnostic quality images. DICOM format image data is available electro nically for review and comparison. FINDINGS: LOWER LUNGS: The visualized lower lungs are clear. LIVER: Homogeneous density without lesion. There is no dilation of the biliary tree. No calcified gallston es. SPLEEN: Normal size without lesion. PANCREAS: Within normal limits. KIDNEYS: Normal in size and shape. There is no mass, stone, or hydronephrosis. ADRENAL GLANDS: Within normal limits. VASCULAR: There is no aortic aneurysm. BOWEL/MESENTERY: The stomach, small bowel, and colon demonstrate no acute abnormality. There is no free intraperitone al air or fluid. ABDOMINAL WALL: Within normal limits. RETROPERITONEUM: There is no lymphadenopathy. BLADDER: No wall thickening or mass. REPRODUCTIVE: Within normal limits. INGUINAL: There is no lymphadenopathy or hernia. MUSCULOSKELETAL: Within normal limits for patient age. CONCLUSION: 1. No evidence of acute abdominal or pelvic process. No masses are identified. Augusto Gomez MD on January 13, 2018 at 18:59 Board Certified Radiologist. This report was verified electronically.
[2018-01-13 19:41] VITALS: BP 115/62; PULSE 88; RESP 18; O2SAT 98
== END 2018-01-13 19:53 | disposition home or self-care (01) ==
LOC: PHED 16:29
DX: R10.9 Unspecified abdominal pain (principal); Z72.0 Tobacco use
CPT/HCPCS: 74176; 80053; 81001; 83690; 84703; 85025; 96374; 99284; J1885

== ENCOUNTER 2018-02-25 08:44 | Emergency (ER) | payer OTHER, BC ==
[~2018-02-25] VITALS: Ht 175.3 cm; Wt 72.0 kg
[2018-02-25 08:46] VITALS: BP 114/62; PULSE 100; RESP 14; TEMP 98.7; O2SAT 100
[2018-02-25] MEDS ORDERED: ORPHENADRINE INJ 60 MG/2 ML AMP IM ONE (09:15)
[2018-02-25] MEDS ORDERED: KETOROLAC TROMETHAMINE 60 MG/2 ML (IM) VIAL IM ONE (09:15)
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
[2018-02-25] MEDS ORDERED: ROBA500T PO (09:42)
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
[2018-02-25 10:09] VITALS: BP 98/64; PULSE 82; RESP 16; O2SAT 98
== END 2018-02-25 10:44 | disposition home or self-care (01) ==
LOC: PHEFT 08:44
DX: S39.012A Strain of muscle, fascia and tendon of lower back, initial encounter (principal); M54.17 Radiculopathy, lumbosacral region; S13.4XXA Sprain of ligaments of cervical spine, initial encounter; D64.9 Anemia, unspecified; J45.909 Unspecified asthma, uncomplicated; K21.9 Gastro-esophageal reflux disease without esophagitis; F17.200 Nicotine dependence, unspecified, uncomplicated; V47.6XXA Car passenger injured in collision with fixed or stationary object in traffic accident, initial encounter; Z86.73 Personal history of transient ischemic attack (TIA), and cerebral infarction without residual deficits
CPT/HCPCS: 72100; 72125; 73502; 96372; 99284; J1885; J2360

== ENCOUNTER 2018-03-25 18:30 | Emergency (ER) | payer BC ==
[~2018-03-25] VITALS: Ht 176.5 cm; Wt 79.7 kg
[~2018-03-25 18:30] MED LIST changes: +ROBA500T PO; -SULF1TAB23 PO; -TYLE325T PO
[2018-03-25 18:39] VITALS: BP 104/56; PULSE 96; RESP 16; TEMP 98.9; O2SAT 99
[2018-03-25] MEDS ORDERED: guaiFENesin/CODEINE SYRUP 200 MG/20 MG/10 ML CUP PO ONE (19:15)
[2018-03-25] MEDS ORDERED: RESP: IPRATROPIUM 0.5 MG/2.5 ML NEB NEB ONE (19:15)
--- NOTE | 2018-03-25 19:22 | PD ---
HPI Chief Complaint: Cold / Flu Symptoms Time Seen by Provider: 19:05 Travel History International Travel<30 days: No Contact w/Intl Traveler<30days: No Traveled to known affect area: No History of Present Illness HPI pt is healthy 27 yr old female with no sig Past med Hx , childhood asthma and tubiligation , pt Has had 3 days off a worsening cough congestion fever 103 and genrarlized body aches . pt has no sick contact , but reports her boss was out for 1 week with " walking Pneumonia " pt doesnt think she has the flu but she thinks she too has walking PNA , laying flat aawake with suffocating feeling , and walking rapidly becomes SOB, took OTC robitussin and Thera FLU without relief PFSH Past Medical History Anemia: Yes Asthma: Yes Cerebrovascular Accident: Yes Diminished Hearing: No Gastrointestinal Disorders: Yes (GASTRITIS) GERD: Yes Respiratory: Yes (asthma as a child) Immunizations Current: Yes Tetanus Vaccination: < 5 Years Influenza Vaccination: No ?: Not LMP: 02/24/18 : 4 Para: 3 Miscarriage: 1 Tubal Ligation: Yes (2010) Social History Alcohol Use: Yes (rare) Tobacco Use: Yes (11/18 ppd) Substance Use: No (HX of) Allergies-Medications (Allergen,Severity, Reaction): Coded Allergies: aspirin (Unverified Allergy, Severe, ONLY RUDY ASPRIN, 03/25/18) brompheniramine (Unverified Allergy, Severe, Swelling, 03/25/18) THROAT SWELLING penicillin G (Unverified Allergy, Severe, PT DENIES ALLERGY, 03/25/18) phenylpropanolamine (Unverified Allergy, Severe, Swelling, 03/25/18) THROAT SWELLING adhesive (Unverified Allergy, Intermediate, Rash, 03/25/18) latex (Unverified Allergy, Intermediate, Itching, 03/25/18) promethazine (Unverified Adverse Reaction, Severe, Vomiting, 03/25/18) terbutaline (Unverified Adverse Reaction, Severe, Increased contractions, 03/25/18) Reported Meds & Prescriptions Reported Meds & Active Scripts Active Proair Hfa 8.5 GM Inh (Albuterol Sulfate) 90 Mcg/Act Aer 2 Puff INH Q4H PRN 108 mcg/actuation Guaifenesin AC Liq (Guaifenesin-Codeine Liq) 100-10 Mg/5 Ml Syrp 10 Ml PO Q6H PRN Atrovent HFA 12.9 GM Inh (Ipratropium Winston) 17 Mcg/Actuation Aer 2 Puff INH Q6HR PRN Azithromycin 250 Mg Tab 250 Mg PO DIRECTED Take 2 tabs (500 mg) on day 1 then 1 tab daily x 4 days. Review of Systems Except as stated in HPI: all other systems reviewed are Neg General / Constitutional: Positive: Fever, Chills Respiratory: Positive: Cough, Shortness of Breath Gastrointestinal: No: Nausea, Vomiting, Diarrhea, Abdominal Pain Musculoskeletal: Positive: Myalgias Physical Exam Narrative GENERAL: pt has red nares to nose and haorse voice SKIN: Warm and dry. HEAD: Atraumatic. Normocephalic. EYES: Pupils equal and round. No scleral icterus. No injection or drainage. ENT: No nasal bleeding or discharge. Mucous membranes pink and moist. redness no exudate NECK: Trachea midline. No JVD. CARDIOVASCULAR: Regular rate and rhythm. RESPIRATORY: No accessory muscle use. Clear to auscultation. Breath sounds equal bilaterally. lung are clear but she coughs with deep inspiration GASTROINTESTINAL: Abdomen soft, non-tender, nondistended. Hepatic and splenic margins not palpable. MUSCULOSKELETAL: Extremities without clubbing, cyanosis, or edema. No obvious deformities. NEUROLOGICAL: Awake and alert. No obvious cranial nerve deficits. Motor grossly within normal limits. Five out of 5 muscle strength in the arms and legs. Normal speech. PSYCHIATRIC: Appropriate mood and affect; insight and judgment normal. Data Data Last Documented VS Vital Signs Date Time Temp Pulse Resp B/P (MAP) Pulse Ox O2 Delivery O2 Flow Rate FiO2 03/25/18 18:53 20 99 03/25/18 18:39 98.9 96 104/56 (72) Orders Orders Influenzae A/B Antigen (03/25/18 19:15) Group A Rapid Strep Screen (03/25/18 19:15) Chest, Pa & Lat (03/25/18 ) Ipratropium Neb (Atrovent Neb) (03/25/18 19:15) Guaifen-Cod 200-20 Mg/10ml Liq (Robituss (03/25/18 19:15) Ibuprofen (Motrin) (03/25/18 19:30) Pseudoephedrine (Sudafed) (03/25/18 19:30) Strep Culture (Group A) (03/25/18 19:20) Azithromycin (Zithromax) (03/25/18 20:30) Ed Discharge Order (03/25/18 20:40) [facility] Medical Decision Making Medical Screen Exam Complete: Yes Emergency Medical Condition: Yes Differential Diagnosis viral illness vs PNA vs bronchitis vs flu pharyngitis Narrative Course swabs negative no flu no strep and now atrovent robitussin AC azithromycin walking PNA vs viral bronchitis Diagnosis Primary Impression: Bronchitis Additional Impression: Viral illness Patient Instructions: General Instructions, Viral Pneumonia (ED) Departure Forms: Work Release Additional Instructions: pt has bronchitis and possible walking pneumonia . Pt needs to remain in bed and drink plenty of fluid tylenol , Return to work after no fever for 24hr . or Scripts Albuterol 8.5 GM Inh (Proair Hfa 8.5 GM Inh) 90 Mcg/Act Aer 2 PUFF INH Q4H Y for SHORTNESS OF BREATH, #1 INHALER 0 Refills 108 mcg/actuation Prov: Tomás Mcguire MD 03/25/18 Guaifenesin-Codeine Liq (Guaifenesin AC Liq) 100-10 Mg/5 Ml Syrp 10 ML PO Q6H Y for COUGH, #1 BOTTLE 0 Refills Prov: Tomás Mcguire MD 03/25/18 Ipratropium HFA 12.9 GM Inh (Atrovent HFA 12.9 GM Inh) 17 Mcg/Actuation Aer 2 PUFF INH Q6HR Y for SHORTNESS OF BREATH, #1 INHALER 0 Refills Prov: Tomás Mcguire MD 03/25/18 Azithromycin (Azithromycin) 250 Mg Tab 250 MG PO DIRECTED for Infection, #4 TAB 0 Refills Take 2 tabs (500 mg) on day 1 then 1 tab daily x 4 days. Prov: Tomás Mcguire MD 03/25/18 Disposition: 01 DISCHARGE HOME Condition: Good Tomás Mcguire MD March 25, 2018 19:22
[2018-03-25] MEDS ORDERED: IBUPROFEN 600 MG TAB PO ONE (19:30)
[2018-03-25] MEDS ORDERED: PSEUDOEPHEDRINE HCL 30 MG TAB PO ONE (19:30)
--- NOTE | 2018-03-25 19:32 | RADRPT ---
EXAM DATE/TIME: 03/25/2018 19:21 [facility] COMPARISON: No previous studies available for comparison. INDICATIONS : Cough, chest congestion for 3 days MEDICAL HISTORY : None. SURGICAL HISTORY : None. ENCOUNTER: Initial ACUITY: 3 days PAIN SCORE: 5/10 LOCATION: Bilateral chest FINDINGS: PA and lateral views of the chest demonstrate the lungs to be symmetrically aerated without evidence of mass, infiltrate or effusion. The cardiomediastinal contours are unremarkable. Osseous structure s are intact. CONCLUSION: No acute disease. Perry Mayberry MD on March 25, 2018 at 19:30 Board Certified Radiologist. This report was verified electronically.
[2018-03-25] MEDS ORDERED: AZIT250T3 PO (20:18)
[2018-03-25] MEDS ORDERED: IPRA17I INH (20:18)
[2018-03-25] MEDS ORDERED: GUAISYP4 PO (20:18)
[2018-03-25] MEDS ORDERED: AZITHROMYCIN 250 MG TAB PO ONE (20:30)
[2018-03-25] MEDS ORDERED: ALBUAER3 INH (21:49)
== END 2018-03-25 20:40 | disposition home or self-care (01) ==
LOC: PHEFT 18:30
DX: J20.8 Acute bronchitis due to other specified organisms (principal); J45.909 Unspecified asthma, uncomplicated; D64.9 Anemia, unspecified; K21.9 Gastro-esophageal reflux disease without esophagitis; F17.200 Nicotine dependence, unspecified, uncomplicated; Z86.73 Personal history of transient ischemic attack (TIA), and cerebral infarction without residual deficits; Z87.19 Personal history of other diseases of the digestive system
CPT/HCPCS: 71046; 87081; 87804; 87880; 94664; 99284; J7644